=== PATIENT | female | born 1965 | race American Indian/Alaskan Native ===

== ENCOUNTER 2016-12-31 14:47 | Emergency (ER) | payer MEDICARE ==
[2016-12-31 15:02] VITALS: BP 158/102
--- NOTE | 2016-12-31 17:04 | XRay Report ---
FINAL REPORT EXAM: XR CHEST ROUTINE 2V HISTORY: cough TECHNIQUE: Two view chest PA and lateral PRIORS: None. FINDINGS: Cardiac and mediastinal contours are unremarkable. No focal pulmonary infiltrate is identified. No pleural fluid collection seen. Pulmonary vasculature is unremarkable. IMPRESSION: Negative two-view chest
[2016-12-31] MEDS ORDERED: LIDOCAINE VISCOUS 2% PO ONE (18:48)
[2016-12-31] MEDS ORDERED: TESSALON PERLES PO ONE (18:48)
--- NOTE | 2016-12-31 18:50 | Emergency Department Report ---
- General Chief Complaint: Upper Respiratory Infection Stated Complaint: SORE THROAT,COUGHING, EAR PAIN Time Seen by Provider: 12/31/16 18:14 Source: patient Mode of arrival: Ambulatory Limitations: No Limitations - History of Present Illness Initial Comments: This is a 51-year-old female nontoxic, well nourished in appearance, no acute signs of distress presents to the ED with c/o of sore throat, frontal sinus pain , productive cough, and bilateral earache x4 days. Patient stated she was in contact with grandchild that was diagnosed with strep throat. Patient denies any nausea, vomiting, chest pain, shortness of breath, difficulty breathing, stiff neck, headache, blurry vision, fever, chills, numbness or tingling. Patient states allergies to codeine with past medical history of diabetes and hypertension. Patient denies recent travels. Denies hemoptysis, calf pain, or tenderness. MD Complaint: cough, sore throat, rhinorrhea, nasal congestion, sinus pain, other (bilateral earache) -: days(s) (4) Severity: mild Severity scale (0 -10): 8 Quality: aching Consistency: constant Improves With: nothing Worsens With: nothing Associated Symptoms: denies other symptoms, rhinorrhea, nasal congestion, sore throat, cough. denies: fever, chills, myalgias, diaphoresis, headache, stiff neck, chest pain, shortness of breath, abdominal pain, nausea, vomiting, diarrhea, dysuria, rash, confusion, right sweats, weight loss, epistaxis, hoarseness, ear pain Treatments Prior to Arrival: none - Related Data Home Medications Medication Instructions Recorded Confirmed Last Taken Lisinopril/Hydrochlorothiazide 1 tab PO QDAY 11/09/12 11/09/12 11/08/12 21:00 [Zestoretic 20-12.5 mg] metFORMIN [Glucophage] 1,000 mg PO BID 11/09/12 11/09/12 11/08/12 20:00 Previous Rx's Medication Instructions Recorded Last Taken Type Hydrocodone Bit/Acetaminophen 1 each PO Q8H PRN #20 tablet 11/09/12 Unknown Rx [Lortab 7.5-500 mg] Ibuprofen [Motrin] 600 mg PO Q8H PRN #60 tablet 11/09/12 Unknown Rx Penicillin Vk [Veetids TAB] 500 mg PO QID #40 tablet 11/09/12 Unknown Rx Promethazine [Phenergan] 25 mg PO Q6H PRN #12 tablet 02/23/13 Unknown Rx traMADol [Ultram 50 MG tab] 50 mg PO Q6HR PRN #12 tablet 02/23/13 Unknown Rx HYDROcodone/APAP 5-325 [[place] 1 each PO Q6HR PRN #20 tablet 06/07/14 Unknown Rx 5/325] HYDROcodone/APAP 5-325 [[place] 1 each PO Q6HR PRN #14 tablet 11/04/14 Unknown Rx 5/325] Penicillin Vk [Veetids TAB] 500 mg PO QID #40 tablet 11/04/14 Unknown Rx Cyclobenzaprine [Flexeril] 10 mg PO BID PRN #10 tablet 08/04/15 Unknown Rx methylPREDNISolone [Medrol] 4 mg PO DAILY #1 tab.ds.pk 08/04/15 Unknown Rx traMADol [Ultram] 50 mg PO Q6HR PRN #12 tablet 08/04/15 Unknown Rx Amoxicillin/K Clav Tab [Augmentin 1 tab PO Q12HR #20 tab 12/31/16 Unknown Rx 875 mg] Benzonatate [Tessalon Perle] 100 mg PO Q8H #20 capsule 12/31/16 Unknown Rx Nystas/Diphen/Xyl Visc/Mylanta 15 ml MM Q8H 10 Days udc 12/31/16 Unknown Rx [Magic Mouthwash] Allergies Allergy/AdvReac Type Severity Reaction Status Date / Time codeine Allergy Shortness Verified 12/31/16 14:59 of Breath ED Review of Systems ROS: Stated complaint: SORE THROAT,COUGHING, EAR PAIN Other details as noted in HPI Constitutional: denies: chills, fever Eyes: denies: eye pain, eye discharge, vision change ENT: denies: ear pain, throat pain Respiratory: cough. denies: shortness of breath, wheezing Cardiovascular: denies: chest pain, palpitations Endocrine: no symptoms reported Gastrointestinal: denies: abdominal pain, nausea, diarrhea Genitourinary: denies: urgency, dysuria, discharge Musculoskeletal: denies: back pain, joint swelling, arthralgia Skin: denies: rash, lesions Neurological: denies: headache, weakness, paresthesias Psychiatric: denies: anxiety, depression Hematological/Lymphatic: denies: easy bleeding, easy bruising ED Past Medical Hx - Past Medical History Hx Hypertension: Yes Hx Diabetes: Yes (type 2) - Surgical History Additional Surgical History: hysterectomy - Social History Smoking Status: Current Every Day Smoker Substance Use Type: None - Medications Home Medications: Home Medications Medication Instructions Recorded Confirmed Last Taken Type Hydrocodone Bit/Acetaminophen 1 each PO Q8H PRN #20 tablet 11/09/12 Unknown Rx [Lortab 7.5-500 mg] Ibuprofen [Motrin] 600 mg PO Q8H PRN #60 tablet 11/09/12 Unknown Rx Lisinopril/Hydrochlorothiazide 1 tab PO QDAY 11/09/12 11/09/12 11/08/12 21:00 History [Zestoretic 20-12.5 mg] Penicillin Vk [Veetids TAB] 500 mg PO QID #40 tablet 11/09/12 Unknown Rx metFORMIN [Glucophage] 1,000 mg PO BID 11/09/12 11/09/12 11/08/12 20:00 History Promethazine [Phenergan] 25 mg PO Q6H PRN #12 tablet 02/23/13 Unknown Rx traMADol [Ultram 50 MG tab] 50 mg PO Q6HR PRN #12 tablet 02/23/13 Unknown Rx HYDROcodone/APAP 5-325 [[place] 1 each PO Q6HR PRN #20 tablet 06/07/14 Unknown Rx 5/325] HYDROcodone/APAP 5-325 [[place] 1 each PO Q6HR PRN #14 tablet 11/04/14 Unknown Rx 5/325] Penicillin Vk [Veetids TAB] 500 mg PO QID #40 tablet 11/04/14 Unknown Rx Cyclobenzaprine [Flexeril] 10 mg PO BID PRN #10 tablet 08/04/15 Unknown Rx methylPREDNISolone [Medrol] 4 mg PO DAILY #1 tab.ds.pk 08/04/15 Unknown Rx traMADol [Ultram] 50 mg PO Q6HR PRN #12 tablet 08/04/15 Unknown Rx Amoxicillin/K Clav Tab [Augmentin 1 tab PO Q12HR #20 tab 12/31/16 Unknown Rx 875 mg] Benzonatate [Tessalon Perle] 100 mg PO Q8H #20 capsule 12/31/16 Unknown Rx Nystas/Diphen/Xyl Visc/Mylanta 15 ml MM Q8H 10 Days [facility] [place]16 Unknown Rx [Magic Mouthwash] ED Physical Exam - General Limitations: No Limitations General appearance: alert, in no apparent distress - Head Head exam: Present: atraumatic, normocephalic, normal inspection - Eye Eye exam: Present: normal appearance, PERRL, EOMI. Absent: scleral icterus, conjunctival injection, nystagmus, periorbital swelling, periorbital tenderness Pupils: Present: normal accommodation - ENT ENT exam: Present: mucous membranes moist, TM's normal bilaterally, normal external ear exam - Expanded ENT Exam Expanded Ear exam: Present: normal external inspection TM/Canal exam: Erythema: Right TM, Bulging: Right TM Mouth exam: Present: normal external inspection, tongue normal. Absent: drooling, trismus, muffled voice, tongue elevation, laceration Teeth exam: Present: normal inspection Throat exam: Positive: tonsillar erythema, tonsillomegaly (2+), tonsillar exudate, other (Uvula midline. No abscess or swelling noted. ). Negative: R peritonsillar mass, L peritonsillar mass - Neck Neck exam: Present: normal inspection, full ROM. Absent: tenderness, meningismus, lymphadenopathy, thyromegaly - Respiratory Respiratory exam: Present: normal lung sounds bilaterally. Absent: respiratory distress, wheezes, rales, rhonchi, stridor, chest wall tenderness, accessory muscle use, decreased breath sounds, prolonged expiratory - Cardiovascular Cardiovascular Exam: Present: regular rate, normal rhythm, normal heart sounds. Absent: bradycardia, tachycardia, irregular rhythm, systolic murmur, diastolic murmur, rubs, gallop - GI/Abdominal GI/Abdominal exam: Present: soft, normal bowel sounds. Absent: distended, tenderness, guarding, rebound, rigid, diminished bowel sounds - Rectal Rectal exam: Present: deferred - Extremities Exam Extremities exam: Present: normal inspection, full ROM, normal capillary refill. Absent: tenderness, pedal edema, joint swelling, calf tenderness - Back Exam Back exam: Present: normal inspection, full ROM. Absent: tenderness, CVA tenderness (R), CVA tenderness (L), muscle spasm, paraspinal tenderness, vertebral tenderness, rash noted - Neurological Exam Neurological exam: Present: alert, oriented X3, CN II-XII intact, normal gait, reflexes normal - Psychiatric Psychiatric exam: Present: normal affect, normal mood - Skin Skin exam: Present: warm, dry, intact, normal color. Absent: rash - Other Other exam information: Positive frontal sinus tenderness. ED Course Vital Signs 12/31/16 14:59 Temperature 98.4 F Pulse Rate 82 Respiratory 18 Rate Blood Pressure 158/102 O2 Sat by Pulse 99 Oximetry - Reevaluation(s) Reevaluation #1: 12/31/16 19:05 Patient is speaking in full sentences with no signs of distress noted. ED Medical Decision Making - Medical Decision Making This is a 51-year-old female that presents with upper resp infection and sinusitis. Patient was examined by me and patient is stable. Chest xray has obtained and dictated by radiologist with normal exam. Patient was notified of xay results with no further questions noted by the patient. Patient is d/c with augmentin and Tessalon Perles. Patient was instructed to Follow-up with a primary care doctor in 3-5 days or if symptoms worsen and continue return to emergency room as soon as possible. At time time of discharge, the patient does not seem toxic or ill in appearance. No acute signs of distress noted. Patient agrees to discharge treatment plan of care. No further questions noted by the patient. Critical care attestation.: If time is entered above; I have spent that time in minutes in the direct care of this critically ill patient, excluding procedure time. ED Disposition Clinical Impression: Sinusitis Qualifiers: Sinusitis location: frontal Chronicity: acute Recurrence: non-recurrent Qualified Code(s): J01.10 - Acute frontal sinusitis, unspecified Upper respiratory infection Qualifiers: URI type: unspecified URI Qualified Code(s): J06.9 - Acute upper respiratory infection, unspecified Disposition: DC-01 TO HOME OR SELFCARE Is pt being admited?: No Does the pt Need Aspirin: No Condition: Stable Instructions: Sinusitis (ED), Amoxicillin/Clavulanate Potassium (By mouth), Ibuprofen (By mouth) Additional Instructions: Follow-up with a primary care doctor in 3-5 days or if symptoms worsen and continue return to emergency room as soon as possible. Prescriptions: Amoxicillin/K Clav Tab [Augmentin 875 mg] 1 tab PO Q12HR #20 tab Benzonatate [Tessalon Perle] 100 mg PO Q8H #20 capsule Nystas/Diphen/Xyl Visc/Mylanta [Magic Mouthwash] 15 ml MM Q8H 10 Days udc Referrals: PRIMARY CAREMD [Primary Care Provider] - 3-5 Days LISA MANN MD [Staff Physician] - 3-5 Days [facility] [Outside] - 3-5 Days [facility] [Outside] - 3-5 Days Forms: Work/School Release Form(ED)
== END 2016-12-31 19:15 | disposition home or self-care (01) ==
LOC: ED 14:47
DX: J06.9 Acute upper respiratory infection, unspecified (principal); J32.1 Chronic frontal sinusitis; I10 Essential (primary) hypertension; E11.9 Type 2 diabetes mellitus without complications; F17.200 Nicotine dependence, unspecified, uncomplicated; Z88.6 Allergy status to analgesic agent
CPT/HCPCS: 71020; 99283

== ENCOUNTER 2017-07-23 09:00 | Emergency (ER) | payer MEDICARE ==
--- NOTE | 2017-07-23 10:16 | XRay Report ---
ROUTINE CHEST, TWO VIEWS: HISTORY: Productive cough, URI. The trachea, heart, mediastinal contour, lung interiano and bony thorax are unremarkable. IMPRESSION: Unremarkable chest x-ray. No change since 12/31/16.
[2017-07-23] MEDS ORDERED: CATAPRES PO ONE (11:14)
[2017-07-23] MEDS ORDERED: MOTRIN PO ONE (11:14)
[2017-07-23] MEDS ORDERED: TESSALON PERLES PO ONE (11:14)
[2017-07-23] MEDS ORDERED: ZOFRAN ODT ONE (11:32)
[2017-07-23] MEDS ORDERED: ZOFRAN ODT PO ONE (11:35)
--- NOTE | 2017-07-23 11:42 | Emergency Department Report ---
- General Chief Complaint: Upper Respiratory Infection Stated Complaint: DIFFICULTY BREATHING Time Seen by Provider: 07/23/17 11:00 Source: patient Mode of arrival: Ambulatory Limitations: No Limitations - History of Present Illness Initial Comments: This is a 52-year-old female nontoxic, well nourished in appearance, no acute signs of distress presents to the ED with c/o of productive cough, rhinorrhea, nasal congestion x4 days. Patient describes productive cough as yellow mucus production. Patient denies any sick contact. Patient denies any recent travels , long car, recent hospital stays. Patient denies any calf pain or calf tenderness. Patient stated she gets nausea when she coughs but otherwise denies any nausea. Patient is also c/o of vaginal irriation, itching, and discharge. Patient stated she is not concerned about STD but wants to be tested. Patient denies any chest pain, short of breath, fever, chills, vomiting , hemoptysis, numbness, tingling, headache or stiff neck. Patient stated allergies to codeine. PMH includes HTN and type 2 diabetes. Patient stated that she missed her dose of HCTZ 25 mg today. MD Complaint: cough, rhinorrhea, nasal congestion -: days(s) (4) Severity: mild Severity scale (0 -10): 0 Consistency: constant Improves With: nothing Worsens With: nothing Associated Symptoms: rhinorrhea, nasal congestion, cough. denies: fever, chills , myalgias, diaphoresis, headache, sore throat, stiff neck, chest pain, shortness of breath, abdominal pain, nausea, vomiting, diarrhea, dysuria, rash, confusion, right sweats, weight loss, epistaxis, hoarseness, ear pain Treatments Prior to Arrival: none - Related Data Home Medications Medication Instructions Recorded Confirmed Last Taken Lisinopril/Hydrochlorothiazide 1 tab PO QDAY 11/09/12 11/09/12 11/08/12 21:00 [Zestoretic 20-12.5 mg] metFORMIN [Glucophage] 1,000 mg PO BID 11/09/12 11/09/12 11/08/12 20:00 Previous Rx's Medication Instructions Recorded Last Taken Type Hydrocodone Bit/Acetaminophen 1 each PO Q8H PRN #20 tablet 11/09/12 Unknown Rx [Lortab 7.5-500 mg] Ibuprofen [Motrin] 600 mg PO Q8H PRN #60 tablet 11/09/12 Unknown Rx Penicillin Vk [Veetids TAB] 500 mg PO QID #40 tablet 11/09/12 Unknown Rx Promethazine [Phenergan] 25 mg PO Q6H PRN #12 tablet 02/23/13 Unknown Rx traMADol [Ultram 50 MG tab] 50 mg PO Q6HR PRN #12 tablet 02/23/13 Unknown Rx HYDROcodone/APAP 5-325 [[place] 1 each PO Q6HR PRN #20 tablet 06/07/14 Unknown Rx 5/325] HYDROcodone/APAP 5-325 [[place] 1 each PO Q6HR PRN #14 tablet 11/04/14 Unknown Rx 5/325] Penicillin Vk [Veetids TAB] 500 mg PO QID #40 tablet 11/04/14 Unknown Rx Cyclobenzaprine [Flexeril] 10 mg PO BID PRN #10 tablet 08/04/15 Unknown Rx methylPREDNISolone [Medrol] 4 mg PO DAILY #1 tab.ds.pk 08/04/15 Unknown Rx traMADol [Ultram] 50 mg PO Q6HR PRN #12 tablet 08/04/15 Unknown Rx Amoxicillin/K Clav Tab [Augmentin 1 tab PO Q12HR #20 tab 12/31/16 Unknown Rx 875 mg] Benzonatate [Tessalon Perle] 100 mg PO Q8H #20 capsule 12/31/16 Unknown Rx Nystas/Diphen/Xyl Visc/Mylanta 15 ml MM Q8H 10 Days udc 12/31/16 Unknown Rx [Magic Mouthwash] Azithromycin [Zithromax Z-JOSE A] 250 mg PO DAILY #6 tablet 07/23/17 Unknown Rx Benzonatate [Tessalon Perle] 100 mg PO Q8H PRN #20 capsule 07/23/17 Unknown Rx Fluconazole [Diflucan TAB] 150 mg PO ONCE #1 tablet 07/23/17 Unknown Rx Ibuprofen [Motrin] 600 mg PO Q8H PRN #30 tablet 07/23/17 Unknown Rx Ondansetron [Zofran Odt] 4 mg PO Q8HR PRN #20 tab.rapdis 07/23/17 Unknown Rx Allergies Allergy/AdvReac Type Severity Reaction Status Date / Time codeine Allergy Shortness Verified 12/31/16 14:59 of Breath ED Review of Systems ROS: Stated complaint: DIFFICULTY BREATHING Other details as noted in HPI Constitutional: denies: chills, fever Eyes: denies: eye pain, eye discharge, vision change ENT: denies: ear pain, throat pain Respiratory: cough. denies: shortness of breath, wheezing Cardiovascular: denies: chest pain, palpitations Endocrine: no symptoms reported Gastrointestinal: denies: abdominal pain, nausea, diarrhea Genitourinary: discharge. denies: urgency, dysuria Musculoskeletal: denies: back pain, joint swelling, arthralgia Skin: denies: rash, lesions Neurological: denies: headache, weakness, paresthesias Psychiatric: denies: anxiety, depression Hematological/Lymphatic: denies: easy bleeding, easy bruising ED Past Medical Hx - Past Medical History Hx Hypertension: Yes Hx Diabetes: Yes (type 2) - Surgical History Additional Surgical History: hysterectomy - Social History Smoking Status: Current Some Day Smoker Substance Use Type: None - Medications Home Medications: Home Medications Medication Instructions Recorded Confirmed Last Taken Type Hydrocodone Bit/Acetaminophen 1 each PO Q8H PRN #20 tablet 11/09/12 Unknown Rx [Lortab 7.5-500 mg] Ibuprofen [Motrin] 600 mg PO Q8H PRN #60 tablet 11/09/12 Unknown Rx Lisinopril/Hydrochlorothiazide 1 tab PO QDAY 11/09/12 11/09/12 11/08/12 21:00 History [Zestoretic 20-12.5 mg] Penicillin Vk [Veetids TAB] 500 mg PO QID #40 tablet 11/09/12 Unknown Rx metFORMIN [Glucophage] 1,000 mg PO BID 11/09/12 11/09/12 11/08/12 20:00 History Promethazine [Phenergan] 25 mg PO Q6H PRN #12 tablet 02/23/13 Unknown Rx traMADol [Ultram 50 MG tab] 50 mg PO Q6HR PRN #12 tablet 02/23/13 Unknown Rx HYDROcodone/APAP 5-325 [[place] 1 each PO Q6HR PRN #20 tablet 06/07/14 Unknown Rx 5/325] HYDROcodone/APAP 5-325 [[place] 1 each PO Q6HR PRN #14 tablet 11/04/14 Unknown Rx 5/325] Penicillin Vk [Veetids TAB] 500 mg PO QID #40 tablet 11/04/14 Unknown Rx Cyclobenzaprine [Flexeril] 10 mg PO BID PRN #10 tablet 08/04/15 Unknown Rx methylPREDNISolone [Medrol] 4 mg PO DAILY #1 tab.ds.pk 08/04/15 Unknown Rx traMADol [Ultram] 50 mg PO Q6HR PRN #12 tablet 08/04/15 Unknown Rx Amoxicillin/K Clav Tab [Augmentin 1 tab PO Q12HR #20 tab 12/31/16 Unknown Rx 875 mg] Benzonatate [Tessalon Perle] 100 mg PO Q8H #20 capsule 12/31/16 Unknown Rx Nystas/Diphen/Xyl Visc/Mylanta 15 ml MM Q8H 10 Days udc 12/31/16 Unknown Rx [Magic Mouthwash] Azithromycin [Zithromax Z-JOSE A] 250 mg PO DAILY #6 tablet 07/23/17 Unknown Rx Benzonatate [Tessalon Perle] 100 mg PO Q8H PRN #20 capsule 07/23/17 Unknown Rx Fluconazole [Diflucan TAB] 150 mg PO ONCE #1 tablet 07/23/17 Unknown Rx Ibuprofen [Motrin] 600 mg PO Q8H PRN #30 tablet 07/23/17 Unknown Rx Ondansetron [Zofran Odt] 4 mg PO Q8HR PRN #20 tab.rapdis 07/23/17 Unknown Rx ED Physical Exam - General Limitations: No Limitations General appearance: alert, in no apparent distress - Head Head exam: Present: atraumatic, normocephalic - Eye Eye exam: Present: normal appearance Pupils: Present: normal accommodation - ENT ENT exam: Present: normal exam, normal orophraynx, mucous membranes moist, TM's normal bilaterally, normal external ear exam - Neck Neck exam: Present: normal inspection, full ROM. Absent: tenderness, meningismus, lymphadenopathy - Respiratory Respiratory exam: Present: normal lung sounds bilaterally. Absent: respiratory distress, wheezes, rales, rhonchi, stridor, chest wall tenderness, accessory muscle use, decreased breath sounds, prolonged expiratory - Cardiovascular Cardiovascular Exam: Present: regular rate, normal rhythm, normal heart sounds. Absent: bradycardia, tachycardia, irregular rhythm, systolic murmur, diastolic murmur, rubs, gallop - GI/Abdominal GI/Abdominal exam: Present: soft, normal bowel sounds. Absent: distended, tenderness, guarding, rebound, rigid, diminished bowel sounds - Rectal Rectal exam: Present: deferred - External exam: Present: normal external exam, other (labeler present during exam). Absent: erythema, swelling, lesions, lacerations, ecchymosis, bleeding Speculum exam: Present: normal speculum exam, cervical discharge, other ( labeler present during exam). Absent: erythema, vaginal discharge, vaginal bleeding, foreign body, tissue, laceration Bi-manual exam: Present: normal bi-manual exam, other (labeler present during exam). Absent: cervical motion tendernes, adnexal tenderness, adnexal mass, uterine enlargement, uterine tenderness - Extremities Exam Extremities exam: Present: normal inspection, full ROM, normal capillary refill. Absent: tenderness - Back Exam Back exam: Present: normal inspection, full ROM. Absent: tenderness, CVA tenderness (R), CVA tenderness (L), muscle spasm, paraspinal tenderness, vertebral tenderness, rash noted - Neurological Exam Neurological exam: Present: alert, oriented X3, CN II-XII intact, normal gait - Psychiatric Psychiatric exam: Present: normal affect, normal mood - Skin Skin exam: Present: warm, dry, intact, normal color. Absent: rash ED Course Vital Signs 07/23/17 09:49 Temperature 98.8 F Pulse Rate 78 Respiratory 18 Rate Blood Pressure 190/108 Blood Pressure 190/108 [Right] O2 Sat by Pulse 100 Oximetry - Reevaluation(s) Reevaluation #1: 07/23/17 11:43 Patient is speaking in full sentences with no signs of distress noted. ED Medical Decision Making - Medical Decision Making This is a 52-year-old female that presents with bronchitis and yeast infection. Patient is stable and was examined by me. Chest x-ray has been obtained and dictated by radiologist with normal exam. Patient is notified of x-ray results with no questions noted. Due to patient having symptoms of bronchitis and worsening I will treat patient empirically with zpak. Wet prep obtained. GC pending. UA obtained. Patient was instructed to increase hydration, rest and take Motrin for fever episodes. Patient received tesslone perrls in the ED. Vitals stable. Patient is nonfebrile and normal heart rate. Patient was instructed Follow-up with a primary care doctor in 3-5 days or if symptoms worsen and continue return to emergency room as soon as possible. At time time of discharge, the patient does not seem toxic or ill in appearance. No acute signs of distress noted. Patient agrees to discharge treatment plan of care. No further questions noted by the patient. Patient also received Catapres in the ED. The b/p has decreased prior to discharge. Critical care attestation.: If time is entered above; I have spent that time in minutes in the direct care of this critically ill patient, excluding procedure time. ED Disposition Clinical Impression: Yeast infection of the vagina Acute bronchitis Qualifiers: Bronchitis organism: other organism Qualified Code(s): J20.8 - Acute bronchitis due to other specified organisms Hypertension Qualifiers: Hypertension type: unspecified Qualified Code(s): I10 - Essential (primary) hypertension Disposition: TO HOME OR SELFCARE Is pt being admited?: No Does the pt Need Aspirin: No Condition: Stable Instructions: Azithromycin (By mouth), Acute Bronchitis (ED), Hypertension (ED) , Vulvovaginal Candidiasis (ED) Additional Instructions: Follow-up with a primary care doctor in 3-5 days or if symptoms worsen and continue return to emergency room as soon as possible. Return in 3-5 days for gonorrhea and chlamydia results. Keep your daily dairy of your blood pressure and present it to your primary care doctor. Prescriptions: Azithromycin [Zithromax Z-JOSE A] 250 mg PO DAILY #6 tablet Benzonatate [Tessalon Perle] 100 mg PO Q8H PRN #20 capsule PRN Reason: Cough Fluconazole [Diflucan TAB] 150 mg PO ONCE #1 tablet Ibuprofen [Motrin] 600 mg PO Q8H PRN #30 tablet PRN Reason: Pain Ondansetron [Zofran Odt] 4 mg PO Q8HR PRN #20 tab.rapdis PRN Reason: Nausea Referrals: PRIMARY CARE, [Primary Care Provider] - 3-5 Days LISA MANN MD [Staff Physician] - 3-5 Days [facility] [Outside] - 3-5 Days [facility] [Outside] - 3-5 Days Forms: Work/School Release Form(ED)
[2017-07-23 12:17] LABS: Bacteria,Urine 1+ /HPF (Negative); Bilirubin,Urine NEG (Negative); Blood,Urine NEG (Negative); Color,Urine Yellow (Yellow); Mucus,Urine FEW /HPF; Protein,Urine <15 mg/dL mg/dL (Negative); Urobilinogen,Urine < 2.0 mg/dL (<2.0)
[2017-07-23 13:28] VITALS: BP 154/91
== END 2017-07-23 13:30 | disposition home or self-care (01) ==
LOC: ED 09:00
DX: J20.8 Acute bronchitis due to other specified organisms (principal); I10 Essential (primary) hypertension; B37.9 Candidiasis, unspecified; E11.9 Type 2 diabetes mellitus without complications; Z90.710 Acquired absence of both cervix and uterus; Z72.0 Tobacco use; Z88.5 Allergy status to narcotic agent
CPT/HCPCS: 71046; 81001; 87210; 87591; Q0162

== ENCOUNTER 2019-01-29 13:11 | Emergency (ER) | payer MEDICARE ==
[2019-01-29 13:35] VITALS: BP 144/89
--- NOTE | 2019-01-29 13:40 | Emergency Department Report ---
ED ENT HPI - General Chief complaint: Sore Throat Stated complaint: EARACHE Time Seen by Provider: 01/29/19 13:32 Source: patient Mode of arrival: Ambulatory Limitations: No Limitations - History of Present Illness Initial comments: This is a 53-year-old female nontoxic well in appearance with no signs of distress presents to the ED with complaint of left earache. Patient denies any hearing loss. Denies any mastoid tenderness. Denies any fever, chills, headache, nausea, vomiting, chest pain or SOB. Denies any other complaints. Denies any allergies. MD complaint: ear pain -: week(s) (2) Location: L ear Severity: mild Severity scale (0 -10): 8 Quality: aching Consistency: constant Improves with: none Worsens with: none Associated Symptoms: discharge from ear. denies: fever, cough, gum swelling, toothache, pain with swallowing, sore throat, tinnitus, hearing loss, rhinorrhea - Related Data Home Medications Medication Instructions Recorded Confirmed Last Taken Lisinopril/Hydrochlorothiazide 1 tab PO QDAY 11/09/12 11/09/12 11/08/12 21:00 [Zestoretic 20-12.5 mg] metFORMIN [Glucophage] 1,000 mg PO BID 11/09/12 11/09/12 11/08/12 20:00 Previous Rx's Medication Instructions Recorded Last Taken Type Hydrocodone Bit/Acetaminophen 1 each PO Q8H PRN #20 tablet 11/09/12 Unknown Rx [Lortab 7.5-500 mg] Ibuprofen [Motrin] 600 mg PO Q8H PRN #60 tablet 11/09/12 Unknown Rx Penicillin Vk [Veetids TAB] 500 mg PO QID #40 tablet 11/09/12 Unknown Rx Promethazine [Phenergan] 25 mg PO Q6H PRN #12 tablet 02/23/13 Unknown Rx traMADoL [Ultram 50 MG tab] 50 mg PO Q6HR PRN #12 tablet 02/23/13 Unknown Rx HYDROcodone/APAP 5-325 [[place] 1 each PO Q6HR PRN #20 tablet 06/07/14 Unknown Rx 5/325] HYDROcodone/APAP 5-325 [[place] 1 each PO Q6HR PRN #14 tablet 11/04/14 Unknown Rx 5/325] Penicillin Vk [Veetids TAB] 500 mg PO QID #40 tablet 11/04/14 Unknown Rx Cyclobenzaprine [Flexeril] 10 mg PO BID PRN #10 tablet 08/04/15 Unknown Rx methylPREDNISolone [Medrol] 4 mg PO DAILY #1 tab.ds.pk 08/04/15 Unknown Rx traMADoL [Ultram] 50 mg PO Q6HR PRN #12 tablet 08/04/15 Unknown Rx Amoxicillin/K Clav Tab [Augmentin 1 tab PO Q12HR #20 tab 12/31/16 Unknown Rx 875 mg] Benzonatate [Tessalon Perle] 100 mg PO Q8H #20 capsule 12/31/16 Unknown Rx Nystas/Diphen/Xyl Visc/Mylanta 15 ml MM Q8H 10 Days udc 12/31/16 Unknown Rx [Magic Mouthwash] Azithromycin [Zithromax Z-JOSE A] 250 mg PO DAILY #6 tablet 07/23/17 Unknown Rx Benzonatate [Tessalon Perle] 100 mg PO Q8H PRN #20 capsule 07/23/17 Unknown Rx Fluconazole [Diflucan TAB] 150 mg PO ONCE #1 tablet 07/23/17 Unknown Rx Ibuprofen [Motrin] 600 mg PO Q8H PRN #30 tablet 07/23/17 Unknown Rx Ondansetron [Zofran Odt] 4 mg PO Q8HR PRN #20 tab.rapdis 07/23/17 Unknown Rx Amoxicillin [Amoxicillin TAB] 875 mg PO BID #20 tablet 01/29/19 Unknown Rx Ciprofloxacin HCl/Dexameth 2 drop BID #1 bottle 01/29/19 Unknown Rx [Ciprodex Otic Suspension] Naproxen 500 mg PO Q12H PRN #20 tablet 01/29/19 Unknown Rx Allergies Allergy/AdvReac Type Severity Reaction Status Date / Time codeine Allergy Shortness Verified 12/31/16 14:59 of Breath ED Dental HPI - General Chief complaint: Sore Throat Stated complaint: EARACHE Time Seen by Provider: 01/29/19 13:32 Source: patient Mode of arrival: Ambulatory Limitations: No Limitations - Related Data Home Medications Medication Instructions Recorded Confirmed Last Taken Lisinopril/Hydrochlorothiazide 1 tab PO QDAY 11/09/12 11/09/12 11/08/12 21:00 [Zestoretic 20-12.5 mg] metFORMIN [Glucophage] 1,000 mg PO BID 11/09/12 11/09/12 11/08/12 20:00 Previous Rx's Medication Instructions Recorded Last Taken Type Hydrocodone Bit/Acetaminophen 1 each PO Q8H PRN #20 tablet 11/09/12 Unknown Rx [Lortab 7.5-500 mg] Ibuprofen [Motrin] 600 mg PO Q8H PRN #60 tablet 11/09/12 Unknown Rx Penicillin Vk [Veetids TAB] 500 mg PO QID #40 tablet 11/09/12 Unknown Rx Promethazine [Phenergan] 25 mg PO Q6H PRN #12 tablet 02/23/13 Unknown Rx traMADoL [Ultram 50 MG tab] 50 mg PO Q6HR PRN #12 tablet 02/23/13 Unknown Rx HYDROcodone/APAP 5-325 [[place] 1 each PO Q6HR PRN #20 tablet 06/07/14 Unknown Rx 5/325] HYDROcodone/APAP 5-325 [[place] 1 each PO Q6HR PRN #14 tablet 11/04/14 Unknown Rx 5/325] Penicillin Vk [Veetids TAB] 500 mg PO QID #40 tablet 11/04/14 Unknown Rx Cyclobenzaprine [Flexeril] 10 mg PO BID PRN #10 tablet 08/04/15 Unknown Rx methylPREDNISolone [Medrol] 4 mg PO DAILY #1 tab.ds.pk 08/04/15 Unknown Rx traMADoL [Ultram] 50 mg PO Q6HR PRN #12 tablet 08/04/15 Unknown Rx Amoxicillin/K Clav Tab [Augmentin 1 tab PO Q12HR #20 tab 12/31/16 Unknown Rx 875 mg] Benzonatate [Tessalon Perle] 100 mg PO Q8H #20 capsule 12/31/16 Unknown Rx Nystas/Diphen/Xyl Visc/Mylanta 15 ml MM Q8H 10 Days udc 12/31/16 Unknown Rx [Magic Mouthwash] Azithromycin [Zithromax Z-JOSE A] 250 mg PO DAILY #6 tablet 07/23/17 Unknown Rx Benzonatate [Tessalon Perle] 100 mg PO Q8H PRN #20 capsule 07/23/17 Unknown Rx Fluconazole [Diflucan TAB] 150 mg PO ONCE #1 tablet 07/23/17 Unknown Rx Ibuprofen [Motrin] 600 mg PO Q8H PRN #30 tablet 07/23/17 Unknown Rx Ondansetron [Zofran Odt] 4 mg PO Q8HR PRN #20 tab.rapdis 07/23/17 Unknown Rx Amoxicillin [Amoxicillin TAB] 875 mg PO BID #20 tablet 01/29/19 Unknown Rx Ciprofloxacin HCl/Dexameth 2 drop BID #1 bottle 01/29/19 Unknown Rx [Ciprodex Otic Suspension] Naproxen 500 mg PO Q12H PRN #20 tablet 01/29/19 Unknown Rx Allergies Allergy/AdvReac Type Severity Reaction Status Date / Time codeine Allergy Shortness Verified 12/31/16 14:59 of Breath ED Review of Systems ROS: Stated complaint: EARACHE Other details as noted in HPI Constitutional: denies: chills, fever Eyes: denies: eye pain, eye discharge, vision change ENT: ear pain. denies: throat pain Respiratory: denies: cough, shortness of breath, wheezing Cardiovascular: denies: chest pain, palpitations Endocrine: no symptoms reported Gastrointestinal: denies: abdominal pain, nausea, diarrhea Genitourinary: denies: urgency, dysuria, discharge Musculoskeletal: denies: back pain, joint swelling, arthralgia Skin: denies: rash, lesions Neurological: denies: headache, weakness, paresthesias Psychiatric: denies: anxiety, depression Hematological/Lymphatic: denies: easy bleeding, easy bruising ED Past Medical Hx - Past Medical History Previous Medical History?: Yes Hx Hypertension: Yes Hx Diabetes: Yes (type 2) - Surgical History Past Surgical History?: Yes Additional Surgical History: hysterectomy - Social History Smoking Status: Never Smoker Substance Use Type: None - Medications Home Medications: Home Medications Medication Instructions Recorded Confirmed Last Taken Type Hydrocodone Bit/Acetaminophen 1 each PO Q8H PRN #20 tablet 11/09/12 Unknown Rx [Lortab 7.5-500 mg] Ibuprofen [Motrin] 600 mg PO Q8H PRN #60 tablet 11/09/12 Unknown Rx Lisinopril/Hydrochlorothiazide 1 tab PO QDAY 11/09/12 11/09/12 11/08/12 21:00 History [Zestoretic 20-12.5 mg] Penicillin Vk [Veetids TAB] 500 mg PO QID #40 tablet 11/09/12 Unknown Rx metFORMIN [Glucophage] 1,000 mg PO BID 11/09/12 11/09/12 11/08/12 20:00 History Promethazine [Phenergan] 25 mg PO Q6H PRN #12 tablet 02/23/13 Unknown Rx traMADoL [Ultram 50 MG tab] 50 mg PO Q6HR PRN #12 tablet 02/23/13 Unknown Rx HYDROcodone/APAP 5-325 [[place] 1 each PO Q6HR PRN #20 tablet 06/07/14 Unknown Rx 5/325] HYDROcodone/APAP 5-325 [[place] 1 each PO Q6HR PRN #14 tablet 11/04/14 Unknown Rx 5/325] Penicillin Vk [Veetids TAB] 500 mg PO QID #40 tablet 11/04/14 Unknown Rx Cyclobenzaprine [Flexeril] 10 mg PO BID PRN #10 tablet 08/04/15 Unknown Rx methylPREDNISolone [Medrol] 4 mg PO DAILY #1 tab.ds.pk 08/04/15 Unknown Rx traMADoL [Ultram] 50 mg PO Q6HR PRN #12 tablet 08/04/15 Unknown Rx Amoxicillin/K Clav Tab [Augmentin 1 tab PO Q12HR #20 tab 12/31/16 Unknown Rx 875 mg] Benzonatate [Tessalon Perle] 100 mg PO Q8H #20 capsule 12/31/16 Unknown Rx Nystas/Diphen/Xyl Visc/Mylanta 15 ml MM Q8H 10 Days udc 12/31/16 Unknown Rx [Magic Mouthwash] Azithromycin [Zithromax Z-JOSE A] 250 mg PO DAILY #6 tablet 07/23/17 Unknown Rx Benzonatate [Tessalon Perle] 100 mg PO Q8H PRN #20 capsule 07/23/17 Unknown Rx Fluconazole [Diflucan TAB] 150 mg PO ONCE #1 tablet 07/23/17 Unknown Rx Ibuprofen [Motrin] 600 mg PO Q8H PRN #30 tablet 07/23/17 Unknown Rx Ondansetron [Zofran Odt] 4 mg PO Q8HR PRN #20 tab.rapdis 07/23/17 Unknown Rx Amoxicillin [Amoxicillin TAB] 875 mg PO BID #20 tablet 01/29/19 Unknown Rx Ciprofloxacin HCl/Dexameth 2 drop BID #1 bottle 01/29/19 Unknown Rx [Ciprodex Otic Suspension] Naproxen 500 mg PO Q12H PRN #20 tablet 01/29/19 Unknown Rx ED Physical Exam - General Limitations: No Limitations General appearance: alert, in no apparent distress - Head Head exam: Present: atraumatic, normocephalic - Expanded ENT Exam Expanded Ear exam: Present: normal external inspection TM/Canal exam: Erythema: Left TM, Bulging: Left TM Mouth exam: Present: normal external inspection Teeth exam: Present: normal inspection Throat exam: Positive: normal inspection, other (uvula midline). Negative: tonsillar erythema, tonsillomegaly, tonsillar exudate, R peritonsillar mass, L peritonsillar mass - Neck Neck exam: Present: normal inspection, full ROM. Absent: tenderness, meningismus, lymphadenopathy - Extremities Exam Extremities exam: Present: full ROM - Back Exam Back exam: Present: full ROM - Neurological Exam Neurological exam: Present: alert, oriented X3, normal gait - Psychiatric Psychiatric exam: Present: normal affect, normal mood - Skin Skin exam: Present: warm, dry, intact, normal color. Absent: rash - Other Other exam information: left tragus pain with some drainage. No mastoid tenderness. ED Course Vital Signs 01/29/19 13:33 Temperature 98.3 F Pulse Rate 71 Respiratory 18 Rate Blood Pressure 144/89 O2 Sat by Pulse 98 Oximetry - Reevaluation(s) Reevaluation #1: 01/29/19 13:37 Patient is speaking in full sentences with no signs of distress noted. ED Medical Decision Making - Medical Decision Making Patient was instructed to Follow-up with a primary care doctor in 3-5 days or if symptoms worsen and continue return to emergency room as soon as possible. At time of discharge, the patient does not seem toxic or ill in appearance. No acute signs of distress noted. Patient agrees to discharge treatment plan of care. No further questions noted by the patient. Critical care attestation.: If time is entered above; I have spent that time in minutes in the direct care of this critically ill patient, excluding procedure time. ED Disposition Clinical Impression: Left otitis externa Qualifiers: Otitis externa type: unspecified type Chronicity: acute Qualified Code(s): H60. 502 - Unspecified acute noninfective otitis externa, left ear Left otitis media Qualifiers: Otitis media type: unspecified Qualified Code(s): H66.92 - Otitis media, unspecified, left ear Disposition: DC-01 TO HOME OR SELFCARE Is pt being admited?: No Does the pt Need Aspirin: No Condition: Stable Instructions: Otitis Externa (ED), Otitis Media (ED) Additional Instructions: Patient was instructed to Follow-up with a primary care doctor in 3-5 days or if symptoms worsen and continue return to emergency room as soon as possible. Prescriptions: Amoxicillin [Amoxicillin TAB] 875 mg PO BID #20 tablet Ciprofloxacin HCl/Dexameth [Ciprodex Otic Suspension] 2 drop BID #1 bottle Naproxen 500 mg PO Q12H PRN #20 tablet PRN Reason: Pain, Moderate (4-6) Referrals: PRIMARY CAREMD [Referring] - 3-5 Days LOREN RING MD [Staff Physician] - 3-5 Days [facility] [Outside] - 3-5 Days Forms: Work/School Release Form(ED)
== END 2019-01-29 13:40 | disposition home or self-care (01) ==
LOC: ED 13:11
DX: H60.92 Unspecified otitis externa, left ear (principal); H66.92 Otitis media, unspecified, left ear; I10 Essential (primary) hypertension; E11.9 Type 2 diabetes mellitus without complications; Z90.710 Acquired absence of both cervix and uterus; Z79.1 Long term (current) use of non-steroidal anti-inflammatories (NSAID); Z79.2 Long term (current) use of antibiotics; Z79.4 Long term (current) use of insulin; Z79.899 Other long term (current) drug therapy; Z88.4 Allergy status to anesthetic agent
CPT/HCPCS: 99282

== ENCOUNTER 2019-04-02 08:56 | Emergency (ER) | payer MEDICARE ==
[2019-04-02 09:18] VITALS: BP 150/85
--- NOTE | 2019-04-02 09:50 | Emergency Department Report ---
{null, - General Chief Complaint: Upper Respiratory Infection Stated Complaint: COLD SX Time Seen by Provider: 04/02/19 09:28 Source: patient Mode of arrival: Ambulatory Limitations: No Limitations - History of Present Illness Initial Comments: 53-year-old -[place] female patient with a history of hypertension and diabetes presents with complaints of cough, body aches, and chills x2 days. She admits to being a smoker, but denies any history of asthma. She states her cough is productive of clear sputum. She denies any hemoptysis, chest pain, or shortness of breath. She admits to nasal congestion and tactile fever and also complains of left ear pain. MD Complaint: fever, cough, rhinorrhea, nasal congestion -: Sudden - Related Data Home Medications Medication Instructions Recorded Confirmed Last Taken Lisinopril/Hydrochlorothiazide 1 tab PO QDAY 11/09/12 11/09/12 11/08/12 21:00 [Zestoretic 20-12.5 mg] metFORMIN [Glucophage] 1,000 mg PO BID 11/09/12 11/09/12 11/08/12 20:00 Previous Rx's Medication Instructions Recorded Last Taken Type Hydrocodone Bit/Acetaminophen 1 each PO Q8H PRN #20 tablet 11/09/12 Unknown Rx [Lortab 7.5-500 mg] Ibuprofen [Motrin] 600 mg PO Q8H PRN #60 tablet 11/09/12 Unknown Rx Penicillin Vk [Veetids TAB] 500 mg PO QID #40 tablet 11/09/12 Unknown Rx Promethazine [Phenergan] 25 mg PO Q6H PRN #12 tablet 02/23/13 Unknown Rx traMADoL [Ultram 50 MG tab] 50 mg PO Q6HR PRN #12 tablet 02/23/13 Unknown Rx HYDROcodone/APAP 5-325 [[place] 1 each PO Q6HR PRN #20 tablet 06/07/14 Unknown Rx 5/325] HYDROcodone/APAP 5-325 [[place] 1 each PO Q6HR PRN #14 tablet 11/04/14 Unknown Rx 5/325] Penicillin Vk [Veetids TAB] 500 mg PO QID #40 tablet 11/04/14 Unknown Rx Cyclobenzaprine [Flexeril] 10 mg PO BID PRN #10 tablet 08/04/15 Unknown Rx methylPREDNISolone [Medrol] 4 mg PO DAILY #1 tab.ds.pk 08/04/15 Unknown Rx traMADoL [Ultram] 50 mg PO Q6HR PRN #12 tablet 08/04/15 Unknown Rx Amoxicillin/K Clav Tab [Augmentin 1 tab PO Q12HR #20 tab 12/31/16 Unknown Rx 875 mg] Benzonatate [Tessalon Perle] 100 mg PO Q8H #20 capsule 12/31/16 Unknown Rx Nystas/Diphen/Xyl Visc/Mylanta 15 ml MM Q8H 10 Days udc 12/31/16 Unknown Rx [Magic Mouthwash] Azithromycin [Zithromax Z-JOSE A] 250 mg PO DAILY #6 tablet 07/23/17 Unknown Rx Benzonatate [Tessalon Perle] 100 mg PO Q8H PRN #20 capsule 07/23/17 Unknown Rx Fluconazole [Diflucan TAB] 150 mg PO ONCE #1 tablet 07/23/17 Unknown Rx Ibuprofen [Motrin] 600 mg PO Q8H PRN #30 tablet 07/23/17 Unknown Rx Ondansetron [Zofran Odt] 4 mg PO Q8HR PRN #20 tab.rapdis 07/23/17 Unknown Rx Amoxicillin [Amoxicillin TAB] 875 mg PO BID #20 tablet 01/29/19 Unknown Rx Ciprofloxacin HCl/Dexameth 2 drop BID #1 bottle 01/29/19 Unknown Rx [Ciprodex Otic Suspension] Naproxen 500 mg PO Q12H PRN #20 tablet 01/29/19 Unknown Rx Benzonatate 200 mg PO TID PRN #30 capsule 04/02/19 Unknown Rx Ibuprofen [Motrin 600 MG tab] 600 mg PO Q8H PRN #15 tablet 04/02/19 Unknown Rx Allergies Allergy/AdvReac Type Severity Reaction Status Date / Time codeine Allergy Shortness Verified 12/31/16 14:59 of Breath ED Review of Systems ROS: Stated complaint: COLD SX Other details as noted in HPI Constitutional: chills, fever, malaise. denies: diaphoresis ENT: ear pain, throat pain Respiratory: cough. denies: shortness of breath Cardiovascular: denies: chest pain Gastrointestinal: denies: abdominal pain, nausea, vomiting, diarrhea Genitourinary: denies: urgency, frequency Musculoskeletal: denies: back pain, joint swelling, arthralgia Skin: denies: rash, lesions Neurological: denies: headache ED Past Medical Hx - Past Medical History Previous Medical History?: Yes Hx Hypertension: Yes Hx CVA: Yes Hx Diabetes: Yes (type 2) - Surgical History Past Surgical History?: Yes Additional Surgical History: hysterectomy - Social History Smoking Status: Current Some Day Smoker Substance Use Type: None - Medications Home Medications: Home Medications Medication Instructions Recorded Confirmed Last Taken Type Hydrocodone Bit/Acetaminophen 1 each PO Q8H PRN #20 tablet 11/09/12 Unknown Rx [Lortab 7.5-500 mg] Ibuprofen [Motrin] 600 mg PO Q8H PRN #60 tablet 11/09/12 Unknown Rx Lisinopril/Hydrochlorothiazide 1 tab PO QDAY 11/09/12 11/09/12 11/08/12 21:00 History [Zestoretic 20-12.5 mg] Penicillin Vk [Veetids TAB] 500 mg PO QID #40 tablet 11/09/12 Unknown Rx metFORMIN [Glucophage] 1,000 mg PO BID 11/09/12 11/09/12 11/08/12 20:00 History Promethazine [Phenergan] 25 mg PO Q6H PRN #12 tablet 02/23/13 Unknown Rx traMADoL [Ultram 50 MG tab] 50 mg PO Q6HR PRN #12 tablet 02/23/13 Unknown Rx HYDROcodone/APAP 5-325 [[place] 1 each PO Q6HR PRN #20 tablet 06/07/14 Unknown Rx 5/325] HYDROcodone/APAP 5-325 [[place] 1 each PO Q6HR PRN #14 tablet 11/04/14 Unknown Rx 5/325] Penicillin Vk [Veetids TAB] 500 mg PO QID #40 tablet 11/04/14 Unknown Rx Cyclobenzaprine [Flexeril] 10 mg PO BID PRN #10 tablet 08/04/15 Unknown Rx methylPREDNISolone [Medrol] 4 mg PO DAILY #1 tab.ds.pk 08/04/15 Unknown Rx traMADoL [Ultram] 50 mg PO Q6HR PRN #12 tablet 08/04/15 Unknown Rx Amoxicillin/K Clav Tab [Augmentin 1 tab PO Q12HR #20 tab 12/31/16 Unknown Rx 875 mg] Benzonatate [Tessalon Perle] 100 mg PO Q8H #20 capsule 12/31/16 Unknown Rx Nystas/Diphen/Xyl Visc/Mylanta 15 ml MM Q8H 10 Days udc 12/31/16 Unknown Rx [Magic Mouthwash] Azithromycin [Zithromax Z-JOSE A] 250 mg PO DAILY #6 tablet 07/23/17 Unknown Rx Benzonatate [Tessalon Perle] 100 mg PO Q8H PRN #20 capsule 07/23/17 Unknown Rx Fluconazole [Diflucan TAB] 150 mg PO ONCE #1 tablet 07/23/17 Unknown Rx Ibuprofen [Motrin] 600 mg PO Q8H PRN #30 tablet 07/23/17 Unknown Rx Ondansetron [Zofran Odt] 4 mg PO Q8HR PRN #20 tab.rapdis 07/23/17 Unknown Rx Amoxicillin [Amoxicillin TAB] 875 mg PO BID #20 tablet 01/29/19 Unknown Rx Ciprofloxacin HCl/Dexameth 2 drop BID #1 bottle 01/29/19 Unknown Rx [Ciprodex Otic Suspension] Naproxen 500 mg PO Q12H PRN #20 tablet 01/29/19 Unknown Rx Benzonatate 200 mg PO TID PRN #30 capsule 04/02/19 Unknown Rx Ibuprofen [Motrin 600 MG tab] 600 mg PO Q8H PRN #15 tablet 04/02/19 Unknown Rx ED Physical Exam - General Limitations: No Limitations General appearance: alert, in no apparent distress - Head Head exam: Present: atraumatic - Eye Eye exam: Present: normal appearance. Absent: scleral icterus - ENT ENT exam: Present: normal orophraynx, mucous membranes moist, TM's normal bilaterally - Neck Neck exam: Present: normal inspection - Respiratory Respiratory exam: Present: normal lung sounds bilaterally. Absent: respiratory distress, wheezes, rales, rhonchi - Cardiovascular Cardiovascular Exam: Present: regular rate, normal rhythm. Absent: systolic murmur, diastolic murmur, rubs, gallop - Extremities Exam Extremities exam: Present: normal inspection. Absent: calf tenderness (No swelling or edema noted bilaterally) - Back Exam Back exam: Present: normal inspection - Neurological Exam Neurological exam: Present: alert, oriented X3 - Psychiatric Psychiatric exam: Present: normal affect, normal mood - Skin Skin exam: Present: warm, dry, intact, normal color. Absent: rash, cyanosis, diaphoretic, erythema, petechiae ED Course Vital Signs 04/02/19 09:16 Temperature 98.5 F Pulse Rate 64 Respiratory 20 Rate Blood Pressure 150/85 O2 Sat by Pulse 99 Oximetry ED Medical Decision Making - Radiology Data Radiology results: report reviewed CHEST 2 VIEWS INDICATION / CLINICAL INFORMATION: Cough and fever today. COMPARISON: None available. FINDINGS: SUPPORT DEVICES: None. HEART / MEDIASTINUM: The heart size and pulmonary vasculature are normal. LUNGS / PLEURA: No significant pulmonary or pleural abnormality. No pneumothorax. ADDITIONAL FINDINGS: No significant additional findings. IMPRESSION: No acute findings. There is no evidence of pneumonia. - Medical Decision Making Patient presents with flulike symptoms x2 days. On exam her lungs are clear bilaterally to auscultation and she overall appears well. Her vitals are normal. Chest x-ray is negative for acute findings. Rapid flu was negative. Symptoms appear to be consistent with a viral upper respiratory infection. Will treat conservatively. Recommend follow-up with primary care provider in the next 3 to 5 days. Discussed strict return precautions in detail with patient who verbalizes understanding. Critical care attestation.: If time is entered above; I have spent that time in minutes in the direct care of this critically ill patient, excluding procedure time. ED Disposition Clinical Impression: Viral URI with cough Disposition: DC-01 TO HOME OR SELFCARE Is pt being admited?: No Condition: Stable Instructions: Upper Respiratory Infection (ED) Prescriptions: Benzonatate 200 mg PO TID PRN #30 capsule PRN Reason: Cough Ibuprofen [Motrin 600 MG tab] 600 mg PO Q8H PRN #15 tablet PRN Reason: Pain/fever Referrals: ALE SOUSA MD [Primary Care Provider] - 3-5 Days }
--- NOTE | 2019-04-02 10:16 | XRay Report ---
{null, CHEST 2 VIEWS INDICATION / CLINICAL INFORMATION: Cough and fever today. COMPARISON: None available. FINDINGS: SUPPORT DEVICES: None. HEART / MEDIASTINUM: The heart size and pulmonary vasculature are normal. LUNGS / PLEURA: No significant pulmonary or pleural abnormality. No pneumothorax. ADDITIONAL FINDINGS: No significant additional findings. IMPRESSION: No acute findings. There is no evidence of pneumonia. Signer Name: Bradford Carrera MD Signed: 04/02/2019 10:12 AM Workstation Name: [id number] }
== END 2019-04-02 12:54 | disposition home or self-care (01) ==
LOC: ED 08:56
DX: J06.9 Acute upper respiratory infection, unspecified (principal); I10 Essential (primary) hypertension; E11.9 Type 2 diabetes mellitus without complications; F17.200 Nicotine dependence, unspecified, uncomplicated; Z79.899 Other long term (current) drug therapy; Z88.5 Allergy status to narcotic agent
CPT/HCPCS: 71046; 87400

== ENCOUNTER 2019-04-20 09:30 | Emergency (ER) | payer MEDICARE ==
[2019-04-20 09:47] VITALS: BP 175/86
--- NOTE | 2019-04-20 10:37 | Cat Scan Report ---
CT HEAD/BRAIN WO CON INDICATION / CLINICAL INFORMATION: Pain after part of ceiling fell on head . TECHNIQUE: All CT scans at this location are performed using CT dose reduction for ALARA by means of automated e xposure control. COMPARISON: 11/04/14. FINDINGS: The ventricular system is normal in size and attenuation. No focal lesion or mass effect is seen. The re is no evidence of intracranial hemorrhage or major vessel occlusion. The calvarium is intact. There is opacification of the left mastoid air cells, new since the prior ex am. No bone destruction or sclerosis. The visualized paranasal sinuses and right mastoid air cells cl ear. IMPRESSION: 1. Left mastoiditis is new since 2014. 2. No acute intracranial abnormality or other change. Signer Name: Bradford Carrera MD Signed: 04/20/2019 10:33 AM Workstation Name: [id number]
--- NOTE | 2019-04-20 10:45 | Cat Scan Report ---
CT CERVICAL SPINE WO CON INDICATION / CLINICAL INFORMATION: Neck pain after part of ceiling fell on head . TECHNIQUE: All CT scans at this location are performed using CT dose reduction for ALARA by means of automated e xposure control. COMPARISON: None available. FINDINGS: The prevertebral soft tissues are normal. The vertebral body heights and disc spaces are well-maintai ori. There is no evidence of fracture or subluxation. I see no evidence of a herniated disc or epidur al hematoma. The lung apices are clear. IMPRESSION: No acute abnormality. Signer Name: Bradford Carrera MD Signed: 04/20/2019 10:41 AM Workstation Name: [email or web address]
--- NOTE | 2019-04-20 14:30 | Emergency Department Report ---
ED Headache HPI - General Chief Complaint: Headache Stated Complaint: HEAD/BODY PAIN Time Seen by Provider: 04/20/19 14:12 - History of Present Illness Initial Comments: Patient is a 53-year-old F [place] female who suffered a head injury 2 days ago. Patient states she has a leak in her roof in her apartment and 2 days ago she was sitting on the couch and she heard a loud sound from above and when she looked up her ceiling fell onto her head. Patient states a large piece of drywall fell from the ceiling and crashed on her. She states she immediately had a headache as well as some neck pain. Patient states there was dizziness but no loss of consciousness. Patient states headache is 8 out of 10 in severity. Neck pain is worse with movement and better with rest. She has had some mild nausea but no vomiting. Patient denies any dysfunction with moving her arms and legs. Allergies/Adverse Reactions: Allergies codeine Allergy (Verified 12/31/16 14:59) Shortness of Breath Home Medications: Ambulatory Orders Hydrocodone Bit/Acetaminophen [Lortab 7.5-500 mg] 1 each PO Q8H PRN #20 tablet 11/09/12 Ibuprofen [Motrin] 600 mg PO Q8H PRN #60 tablet 11/09/12 Lisinopril/Hydrochlorothiazide [Zestoretic 20-12.5 mg] 1 tab PO QDAY 11/09/12 Penicillin Vk [Veetids TAB] 500 mg PO QID #40 tablet 11/09/12 metFORMIN [Glucophage] 1,000 mg PO BID 11/09/12 Promethazine [Phenergan] 25 mg PO Q6H PRN #12 tablet 02/23/13 traMADoL [Ultram 50 MG tab] 50 mg PO Q6HR PRN #12 tablet 02/23/13 HYDROcodone/APAP 5-325 [[place] 5/325] 1 each PO Q6HR PRN #20 tablet 06/07/14 HYDROcodone/APAP 5-325 [[place] 5/325] 1 each PO Q6HR PRN #14 tablet 11/04/14 Penicillin Vk [Veetids TAB] 500 mg PO QID #40 tablet 11/04/14 Cyclobenzaprine [Flexeril] 10 mg PO BID PRN #10 tablet 08/04/15 methylPREDNISolone [Medrol] 4 mg PO DAILY #1 tab.ds.pk 08/04/15 traMADoL [Ultram] 50 mg PO Q6HR PRN #12 tablet 08/04/15 Amoxicillin/K Clav Tab [Augmentin 875 mg] 1 tab PO Q12HR #20 tab 12/31/16 Benzonatate [Tessalon Perle] 100 mg PO Q8H #20 capsule 12/31/16 Nystas/Diphen/Xyl Visc/Mylanta [Magic Mouthwash] 15 ml MM Q8H 10 Days udc 12/31/16 Azithromycin [Zithromax Z-JOSE A] 250 mg PO DAILY #6 tablet 07/23/17 Benzonatate [Tessalon Perle] 100 mg PO Q8H PRN #20 capsule 07/23/17 Fluconazole [Diflucan TAB] 150 mg PO ONCE #1 tablet 07/23/17 Ibuprofen [Motrin] 600 mg PO Q8H PRN #30 tablet 07/23/17 Ondansetron [Zofran Odt] 4 mg PO Q8HR PRN #20 tab.rapdis 07/23/17 Amoxicillin [Amoxicillin TAB] 875 mg PO BID #20 tablet 01/29/19 Ciprofloxacin HCl/Dexameth [Ciprodex Otic Suspension] 2 drop BID #1 bottle 01/29/19 Naproxen 500 mg PO Q12H PRN #20 tablet 01/29/19 Benzonatate 200 mg PO TID PRN #30 capsule 04/02/19 Ibuprofen [Motrin 600 MG tab] 600 mg PO Q8H PRN #15 tablet 04/02/19 HYDROcodone/APAP 5-325 [[place] 5/325] 1 each PO Q6HR PRN #14 tablet 04/20/19 Ibuprofen [Motrin 800 MG tab] 800 mg PO Q8HR PRN #14 tablet 04/20/19 methOCARBAMOL [Robaxin TAB] 500 mg PO Q6H PRN #14 tablet 04/20/19 ED Review of Systems ROS: Stated complaint: HEAD/BODY PAIN Other details as noted in HPI Comment: All other systems reviewed and negative ED Past Medical Hx - Past Medical History Previous Medical History?: Yes Hx Hypertension: Yes Hx CVA: Yes Hx Diabetes: Yes (type 2) - Surgical History Past Surgical History?: Yes Additional Surgical History: hysterectomy - Social History Smoking Status: Current Every Day Smoker Substance Use Type: None - Medications Home Medications: Home Medications Medication Instructions Recorded Confirmed Last Taken Type Hydrocodone Bit/Acetaminophen 1 each PO Q8H PRN #20 tablet 11/09/12 Unknown Rx [Lortab 7.5-500 mg] Ibuprofen [Motrin] 600 mg PO Q8H PRN #60 tablet 11/09/12 Unknown Rx Lisinopril/Hydrochlorothiazide 1 tab PO QDAY 11/09/12 11/09/12 11/08/12 21:00 History [Zestoretic 20-12.5 mg] Penicillin Vk [Veetids TAB] 500 mg PO QID #40 tablet 11/09/12 Unknown Rx metFORMIN [Glucophage] 1,000 mg PO BID 11/09/12 11/09/12 11/08/12 20:00 History Promethazine [Phenergan] 25 mg PO Q6H PRN #12 tablet 02/23/13 Unknown Rx traMADoL [Ultram 50 MG tab] 50 mg PO Q6HR PRN #12 tablet 02/23/13 Unknown Rx HYDROcodone/APAP 5-325 [[place] 1 each PO Q6HR PRN #20 tablet 06/07/14 Unknown Rx 5/325] HYDROcodone/APAP 5-325 [[place] 1 each PO Q6HR PRN #14 tablet 11/04/14 Unknown Rx 5/325] Penicillin Vk [Veetids TAB] 500 mg PO QID #40 tablet 11/04/14 Unknown Rx Cyclobenzaprine [Flexeril] 10 mg PO BID PRN #10 tablet 08/04/15 Unknown Rx methylPREDNISolone [Medrol] 4 mg PO DAILY #1 tab.ds.pk 08/04/15 Unknown Rx traMADoL [Ultram] 50 mg PO Q6HR PRN #12 tablet 08/04/15 Unknown Rx Amoxicillin/K Clav Tab [Augmentin 1 tab PO Q12HR #20 tab 12/31/16 Unknown Rx 875 mg] Benzonatate [Tessalon Perle] 100 mg PO Q8H #20 capsule 12/31/16 Unknown Rx Nystas/Diphen/Xyl Visc/Mylanta 15 ml MM Q8H 10 Days udc 12/31/16 Unknown Rx [Magic Mouthwash] Azithromycin [Zithromax Z-JOSE A] 250 mg PO DAILY #6 tablet 07/23/17 Unknown Rx Benzonatate [Tessalon Perle] 100 mg PO Q8H PRN #20 capsule 07/23/17 Unknown Rx Fluconazole [Diflucan TAB] 150 mg PO ONCE #1 tablet 07/23/17 Unknown Rx Ibuprofen [Motrin] 600 mg PO Q8H PRN #30 tablet 07/23/17 Unknown Rx Ondansetron [Zofran Odt] 4 mg PO Q8HR PRN #20 tab.rapdis 07/23/17 Unknown Rx Amoxicillin [Amoxicillin TAB] 875 mg PO BID #20 tablet 01/29/19 Unknown Rx Ciprofloxacin HCl/Dexameth 2 drop BID #1 bottle 01/29/19 Unknown Rx [Ciprodex Otic Suspension] Naproxen 500 mg PO Q12H PRN #20 tablet 01/29/19 Unknown Rx Benzonatate 200 mg PO TID PRN #30 capsule 04/02/19 Unknown Rx Ibuprofen [Motrin 600 MG tab] 600 mg PO Q8H PRN #15 tablet 04/02/19 Unknown Rx HYDROcodone/APAP 5-325 [[place] 1 each PO Q6HR PRN #14 tablet 04/20/19 Unknown Rx 5/325] Ibuprofen [Motrin 800 MG tab] 800 mg PO Q8HR PRN #14 tablet 04/20/19 Unknown Rx methOCARBAMOL [Robaxin TAB] 500 mg PO Q6H PRN #14 tablet 04/20/19 Unknown Rx ED Physical Exam - General Limitations: No Limitations General appearance: alert, in no apparent distress - Head Head exam: Present: atraumatic, normocephalic - Eye Eye exam: Present: normal appearance, PERRL, EOMI - ENT ENT exam: Present: normal orophraynx, mucous membranes moist - Neck Neck exam: Present: normal inspection, tenderness. Absent: full ROM (seondary to pain) - Respiratory Respiratory exam: Present: normal lung sounds bilaterally. Absent: respiratory distress, wheezes, rales, rhonchi - Cardiovascular Cardiovascular Exam: Present: regular rate, normal rhythm. Absent: systolic murmur, diastolic murmur, rubs, gallop - GI/Abdominal GI/Abdominal exam: Present: soft, normal bowel sounds. Absent: distended, tenderness, guarding, rebound - Extremities Exam Extremities exam: Present: normal inspection - Back Exam Back exam: Present: normal inspection - Neurological Exam Neurological exam: Present: alert, oriented X3 - Psychiatric Psychiatric exam: Present: normal affect, normal mood - Skin Skin exam: Present: warm, dry, intact, normal color. Absent: rash ED Course Vital Signs 04/20/19 09:41 Temperature 97.8 F Pulse Rate 79 Respiratory 18 Rate Blood Pressure 175/86 O2 Sat by Pulse 99 Oximetry ED Medical Decision Making - Radiology Data [address] [address] Cat Scan Report Signed Patient: JASON GARCIA MR#: [id number] : 1965 Acct:[id number] Age/Sex: 53 / F ADM Date: 04/20/19 Loc: ED Attending Dr: Ordering Physician: ELIZABET JAMES NP Date of Service: 04/20/19 Procedure(s): CT cervical spine wo con Accession Number(s): [id number] cc: ELIZABET JAMES NP CT CERVICAL SPINE WO CON INDICATION / CLINICAL INFORMATION: Neck pain after part of ceiling fell on head . TECHNIQUE: All CT scans at this location are performed using CT dose reduction for ALARA by means of automated exposure control. COMPARISON: None available. FINDINGS: The prevertebral soft tissues are normal. The vertebral body heights and disc spaces are well- maintained. There is no evidence of fracture or subluxation. I see no evidence of a herniated disc or epidural hematoma. The lung apices are clear. IMPRESSION: No acute abnormality. Signer Name: Bradford Carrera MD Signed: 04/20/2019 10:41 AM Workstation Name: [id number] [address] [address] Cat Scan Report Signed Patient: JASON GARCIA MR#: [id number] : 1965 Acct:[id number] Age/Sex: 53 / F ADM Date: 04/20/19 Loc: ED Attending Dr: Ordering Physician: ELIZABET JAMES NP Date of Service: 04/20/19 Procedure(s): CT head/brain wo con Accession Number(s): [id number] cc: ELIZABET JAMES NP CT HEAD/BRAIN WO CON INDICATION / CLINICAL INFORMATION: Pain after part of ceiling fell on head . TECHNIQUE: All CT scans at this location are performed using CT dose reduction for ALARA by means of automated exposure control. COMPARISON: 11/04/14. FINDINGS: The ventricular system is normal in size and attenuation. No focal lesion or mass effect is seen. There is no evidence of intracranial hemorrhage or major vessel occlusion. The calvarium is intact. There is opacification of the left mastoid air cells, new since the prior exam. No bone destruction or sclerosis. The visualized paranasal sinuses and right mastoid air cells clear. IMPRESSION: 1. Left mastoiditis is new since 2014. 2. No acute intracranial abnormality or other change. Signer Name: Bradford Carrera MD Signed: 04/20/2019 10:33 AM Workstation Name: [id number] - Medical Decision Making Patient suffered a head injury and neck injury 2 days ago when a large piece of drywall fell from her ceiling onto her head. Patient has had persistent dizziness with headache. Patient likely had a mild concussion. Patient also suffered a cervical strain. CT of the head and cervical spine showed no acute fracture or intracranial bleeding. Patient will be discharged home with follow- up with primary care. Patient given medication for symptomatic relief. Critical care attestation.: If time is entered above; I have spent that time in minutes in the direct care of this critically ill patient, excluding procedure time. ED Disposition Clinical Impression: Concussion Qualifiers: Encounter type: initial encounter Loss of consciousness presence/duration: without LOC Qualified Code(s): S06.0X0A - Concussion without loss of consciousness, initial encounter Closed head injury Qualifiers: Encounter type: initial encounter Qualified Code(s): S09.90XA - Unspecified injury of head, initial encounter Cervical strain, acute Qualifiers: Encounter type: initial encounter Qualified Code(s): S16.1XXA - Strain of muscle, fascia and tendon at neck level, initial encounter Disposition: DC-01 TO HOME OR SELFCARE Is pt being admited?: No Does the pt Need Aspirin: No Condition: Stable Instructions: Concussion (ED), Cervical Spine Strain (ED) Referrals: LOREN RING MD [Staff Physician] - 3-5 Days Time of Disposition: 14:30
[2019-04-20] MEDS ORDERED: HYDROcodone/ACETAMINOPHEN 5-325 MG TAB PO ONE (14:33)
[2019-04-20] MEDS ORDERED: IBUPROFEN 800 MG TAB PO ONE (14:33)
== END 2019-04-20 15:05 | disposition home or self-care (01) ==
LOC: ED 09:30
DX: S06.0X0A Concussion without loss of consciousness, initial encounter (principal); S16.1XXA Strain of muscle, fascia and tendon at neck level, initial encounter; I10 Essential (primary) hypertension; E11.9 Type 2 diabetes mellitus without complications; F17.200 Nicotine dependence, unspecified, uncomplicated; Z90.710 Acquired absence of both cervix and uterus; Z86.73 Personal history of transient ischemic attack (TIA), and cerebral infarction without residual deficits; Z79.899 Other long term (current) drug therapy; Z88.6 Allergy status to analgesic agent; X58.XXXA Exposure to other specified factors, initial encounter; Y93.89 Activity, other specified; Y92.009 Unspecified place in unspecified non-institutional (private) residence as the place of occurrence of the external cause; Y99.8 Other external cause status
CPT/HCPCS: 70450; 72125; 99283

== ENCOUNTER 2019-10-08 17:18 | Emergency (ER) | payer MEDICARE ==
[2019-10-08] MEDS ORDERED: IBUPROFEN 600 MG TAB PO ONE (17:52)
--- NOTE | 2019-10-08 18:28 | XRay Report ---
LUMBOSACRAL SPINE, 3 VIEWS INDICATION / CLINICAL INFORMATION: Fall. Back pain COMPARISON: None available. FINDINGS: Vertebral body heights are maintained. There is no evidence for fracture. Posterior alignment is norm al. There is mild degenerative disc disease at L4-L5 and L5-S1. Mild to moderate calcific plaque is seen within the distal abdominal aorta and common iliac arteries. IMPRESSION: 1. No evidence for fracture or traumatic malalignment. 2. Mild degenerative disc disease at L4-5 and L5-S1 Signer Name: Devora Alegria MD Signed: 10/08/2019 6:24 PM Workstation Name: [id number]
--- NOTE | 2019-10-08 21:37 | Emergency Department Report ---
ED Back Pain/Injury HPI - General Chief Complaint: Back Pain/Injury Stated Complaint: FELL BACK HIT STAIRS Time Seen by Provider: 10/08/19 20:48 Source: patient Limitations: No Limitations - History of Present Illness Initial Comments: 54-year-old -Lao female reports that she is fell and hit the back against the stairs. Patient reports that she slipped on 2 metal steps. This happened this morning. Patient denies any head injury no loss of consciousness no symptoms prior to her fall. Patient reports she took ibuprofen 800 mg but did not help when she decided to come in to be evaluated. Patient does have a primary care provider [facility]. She has a history of a CVA diabetes and hypertension. MD Complaint: back pain, back injury -: This morning Similar Symptoms Previously: No Place: home Severity: moderate Severity scale (0 -10): 9 Quality: sharp Consistency: constant Improves With: none Worsens With: movement Context: fall Associated Symptoms: denies other symptoms - Related Data Home Medications Medication Instructions Recorded Confirmed Last Taken Lisinopril/Hydrochlorothiazide 1 tab PO QDAY 11/09/12 11/09/12 11/08/12 21:00 [Zestoretic 20-12.5 mg] metFORMIN [Glucophage] 1,000 mg PO BID 11/09/12 11/09/12 11/08/12 20:00 Previous Rx's Medication Instructions Recorded Last Taken Type Hydrocodone Bit/Acetaminophen 1 each PO Q8H PRN #20 tablet 11/09/12 Unknown Rx [Lortab 7.5-500 mg] Ibuprofen [Motrin] 600 mg PO Q8H PRN #60 tablet 11/09/12 Unknown Rx Penicillin Vk [Veetids TAB] 500 mg PO QID #40 tablet 11/09/12 Unknown Rx Promethazine [Phenergan] 25 mg PO Q6H PRN #12 tablet 02/23/13 Unknown Rx traMADoL [Ultram 50 MG tab] 50 mg PO Q6HR PRN #12 tablet 02/23/13 Unknown Rx HYDROcodone/APAP 5-325 [[place] 1 each PO Q6HR PRN #20 tablet 06/07/14 Unknown Rx 5/325] HYDROcodone/APAP 5-325 [[place] 1 each PO Q6HR PRN #14 tablet 11/04/14 Unknown Rx 5/325] Penicillin Vk [Veetids TAB] 500 mg PO QID #40 tablet 11/04/14 Unknown Rx Cyclobenzaprine [Flexeril] 10 mg PO BID PRN #10 tablet 08/04/15 Unknown Rx methylPREDNISolone [Medrol] 4 mg PO DAILY #1 tab.ds.pk 08/04/15 Unknown Rx traMADoL [Ultram] 50 mg PO Q6HR PRN #12 tablet 08/04/15 Unknown Rx Amoxicillin/K Clav Tab [Augmentin 1 tab PO Q12HR #20 tab 12/31/16 Unknown Rx 875 mg] Benzonatate [Tessalon Perle] 100 mg PO Q8H #20 capsule 12/31/16 Unknown Rx Nystas/Diphen/Xyl Visc/Mylanta 15 ml MM Q8H 10 Days udc 12/31/16 Unknown Rx [Magic Mouthwash] Azithromycin [Zithromax Z-JOSE A] 250 mg PO DAILY #6 tablet 07/23/17 Unknown Rx Benzonatate [Tessalon Perle] 100 mg PO Q8H PRN #20 capsule 07/23/17 Unknown Rx Fluconazole (Nf) [Diflucan TAB] 150 mg PO ONCE #1 tablet 07/23/17 Unknown Rx Ibuprofen [Motrin] 600 mg PO Q8H PRN #30 tablet 07/23/17 Unknown Rx Ondansetron [Zofran Odt] 4 mg PO Q8HR PRN #20 tab.rapdis 07/23/17 Unknown Rx Amoxicillin [Amoxicillin TAB] 875 mg PO BID #20 tablet 01/29/19 Unknown Rx Ciprofloxacin HCl/Dexameth 2 drop BID #1 bottle 01/29/19 Unknown Rx [Ciprodex Otic Suspension] Naproxen 500 mg PO Q12H PRN #20 tablet 01/29/19 Unknown Rx Benzonatate 200 mg PO TID PRN #30 capsule 04/02/19 Unknown Rx Ibuprofen [Motrin 600 MG tab] 600 mg PO Q8H PRN #15 tablet 04/02/19 Unknown Rx HYDROcodone/APAP 5-325 [[place] 1 each PO Q6HR PRN #14 tablet 04/20/19 Unknown Rx 5/325] Ibuprofen [Motrin 800 MG tab] 800 mg PO Q8HR PRN #14 tablet 04/20/19 Unknown Rx methOCARBAMOL [Robaxin TAB] 500 mg PO Q6H PRN #14 tablet 04/20/19 Unknown Rx traMADoL [Ultram 50 MG tab] 50 mg PO Q4HR PRN #12 tablet 10/08/19 Unknown Rx Allergies Allergy/AdvReac Type Severity Reaction Status Date / Time codeine Allergy Shortness Verified 12/31/16 14:59 of Breath ED Review of Systems ROS: Stated complaint: FELL BACK HIT STAIRS Other details as noted in HPI Comment: All other systems reviewed and negative ED Past Medical Hx - Past Medical History Hx Hypertension: Yes Hx CVA: Yes Hx Diabetes: Yes (type 2) - Surgical History Additional Surgical History: hysterectomy - Social History Smoking Status: Current Every Day Smoker - Medications Home Medications: Home Medications Medication Instructions Recorded Confirmed Last Taken Type Hydrocodone Bit/Acetaminophen 1 each PO Q8H PRN #20 tablet 11/09/12 Unknown Rx [Lortab 7.5-500 mg] Ibuprofen [Motrin] 600 mg PO Q8H PRN #60 tablet 11/09/12 Unknown Rx Lisinopril/Hydrochlorothiazide 1 tab PO QDAY 11/09/12 11/09/12 11/08/12 21:00 History [Zestoretic 20-12.5 mg] Penicillin Vk [Veetids TAB] 500 mg PO QID #40 tablet 11/09/12 Unknown Rx metFORMIN [Glucophage] 1,000 mg PO BID 11/09/12 11/09/12 11/08/12 20:00 History Promethazine [Phenergan] 25 mg PO Q6H PRN #12 tablet 02/23/13 Unknown Rx traMADoL [Ultram 50 MG tab] 50 mg PO Q6HR PRN #12 tablet 02/23/13 Unknown Rx HYDROcodone/APAP 5-325 [[place] 1 each PO Q6HR PRN #20 tablet 06/07/14 Unknown Rx 5/325] HYDROcodone/APAP 5-325 [[place] 1 each PO Q6HR PRN #14 tablet 11/04/14 Unknown Rx 5/325] Penicillin Vk [Veetids TAB] 500 mg PO QID #40 tablet 11/04/14 Unknown Rx Cyclobenzaprine [Flexeril] 10 mg PO BID PRN #10 tablet 08/04/15 Unknown Rx methylPREDNISolone [Medrol] 4 mg PO DAILY #1 tab.ds.pk 08/04/15 Unknown Rx traMADoL [Ultram] 50 mg PO Q6HR PRN #12 tablet 08/04/15 Unknown Rx Amoxicillin/K Clav Tab [Augmentin 1 tab PO Q12HR #20 tab 12/31/16 Unknown Rx 875 mg] Benzonatate [Tessalon Perle] 100 mg PO Q8H #20 capsule 12/31/16 Unknown Rx Nystas/Diphen/Xyl Visc/Mylanta 15 ml MM Q8H 10 Days udc 12/31/16 Unknown Rx [Magic Mouthwash] Azithromycin [Zithromax Z-JOSE A] 250 mg PO DAILY #6 tablet 07/23/17 Unknown Rx Benzonatate [Tessalon Perle] 100 mg PO Q8H PRN #20 capsule 07/23/17 Unknown Rx Fluconazole (Nf) [Diflucan TAB] 150 mg PO ONCE #1 tablet 07/23/17 Unknown Rx Ibuprofen [Motrin] 600 mg PO Q8H PRN #30 tablet 07/23/17 Unknown Rx Ondansetron [Zofran Odt] 4 mg PO Q8HR PRN #20 tab.rapdis 07/23/17 Unknown Rx Amoxicillin [Amoxicillin TAB] 875 mg PO BID #20 tablet 01/29/19 Unknown Rx Ciprofloxacin HCl/Dexameth 2 drop BID #1 bottle 01/29/19 Unknown Rx [Ciprodex Otic Suspension] Naproxen 500 mg PO Q12H PRN #20 tablet 01/29/19 Unknown Rx Benzonatate 200 mg PO TID PRN #30 capsule 04/02/19 Unknown Rx Ibuprofen [Motrin 600 MG tab] 600 mg PO Q8H PRN #15 tablet 04/02/19 Unknown Rx HYDROcodone/APAP 5-325 [[place] 1 each PO Q6HR PRN #14 tablet 04/20/19 Unknown Rx 5/325] Ibuprofen [Motrin 800 MG tab] 800 mg PO Q8HR PRN #14 tablet 04/20/19 Unknown Rx methOCARBAMOL [Robaxin TAB] 500 mg PO Q6H PRN #14 tablet 04/20/19 Unknown Rx traMADoL [Ultram 50 MG tab] 50 mg PO Q4HR PRN #12 tablet 10/08/19 Unknown Rx ED Physical Exam - General Limitations: No Limitations General appearance: alert, in no apparent distress - Head Head exam: Present: atraumatic, normocephalic - Eye Eye exam: Present: normal appearance - ENT ENT exam: Present: mucous membranes moist - Neck Neck exam: Present: normal inspection - Back Exam Back exam: Present: full ROM, muscle spasm, paraspinal tenderness - Neurological Exam Neurological exam: Present: alert, oriented X3, normal gait - Psychiatric Psychiatric exam: Present: normal affect, normal mood - Skin Skin exam: Present: warm, dry, intact, normal color. Absent: rash ED Course Vital Signs 10/08/19 17:57 Temperature 98.3 F Pulse Rate 65 Respiratory 18 Rate Blood Pressure 126/68 O2 Sat by Pulse 97 Oximetry ED Medical Decision Making - Radiology Data Radiology results: report reviewed Referring Physician:ED AXELPatient Name:JASON GARCIAPatient ID:[id number] of :[id number]:FemaleAccession:[id number] Date:1688-13-50Etoqiz Status:Finalized Findings [address] [address] XRay Report Signed Patient: JASON GARCIA MR#: [id number] : 1965 Acct:[id number] Age/Sex: 54 / F ADM Date: 10/08/19 Loc: ED Attending Dr: Ordering Physician: SPENCER REYNA MD Date of Service: 10/08/19 Procedure(s): XR spine lumbosacral 2-3V Accession Number(s): [id number] cc: SPENCER REYNA MD Fluoro Time In Minutes: LUMBOSACRAL SPINE, 3 VIEWS INDICATION / CLINICAL INFORMATION: Fall. Back pain COMPARISON: None available. FINDINGS: Vertebral body heights are maintained. There is no evidence for fracture. Posterior alignment is normal. There is mild degenerative disc disease at L4-L5 and L5-S1. Mild to moderate calcific plaque is seen within the distal abdominal aorta and common iliac arteries. IMPRESSION: 1. No evidence for fracture or traumatic malalignment. 2. Mild degenerative disc disease at L4-5 and L5-S1 Signer Name: Devora Alegria MD Signed: 10/08/2019 6:24 PM Workstation Name: [id number] Transcribed By: Dictated By: Devora Alegria MD Electronically Authenticated By: Devora Alegria MD Signed Date/Time: 10/08/191823 DD/ 22 TD/TT: - Medical Decision Making 54-year-old -Lao female reports that she is fell and hit the back against the stairs. Patient reports that she slipped on 2 metal steps. This happened this morning. Patient denies any head injury no loss of consciousness no symptoms prior to her fall. Patient reports she took ibuprofen 800 mg but did not help when she decided to come in to be evaluated. Patient does have a primary care provider [facility]. She has a history of a CVA diabetes and hypertension. X-ray of the lumbar sacral shows no acute fractures or dislocation. She does have mild degenerative disc changes. Patient was given ibuprofen here in the emergency room and states that it is still having pain that is pretty intense. Patient be discharged home on a few tramadol and to follow-up with her primary care provider at [facility]. Critical care attestation.: If time is entered above; I have spent that time in minutes in the direct care of this critically ill patient, excluding procedure time. ED Disposition Clinical Impression: Fall Qualifiers: Encounter type: initial encounter Qualified Code(s): W19.XXXA - Unspecified fall, initial encounter Lumbar contusion Qualifiers: Encounter type: initial encounter Qualified Code(s): S30.0XXA - Contusion of lower back and pelvis, initial encounter Disposition: TO HOME OR SELFCARE Is pt being admited?: No Does the pt Need Aspirin: No Condition: Stable Instructions: Acute Low Back Pain (ED), Fall Prevention for Older Adults (ED) Additional Instructions: X-ray of back is negative for any acute fractures or dislocations. It does show that you have arthritis of your back. Please take tramadol for pain continue with your ibuprofen and to follow-up with your primary care provider. Be sure to increase your water intake while taking medication. Be sure to not operate heavy machinery while taking tramadol. Prescriptions: traMADoL [Ultram 50 MG tab] 50 mg PO Q4HR PRN #12 tablet PRN Reason: Pain Referrals: PRIMARY CARE, [Primary Care Provider] - 3-5 Days [facility] [Provider Group] - 3-5 Days
[2019-10-08 22:10] VITALS: BP 129/72
== END 2019-10-08 22:00 | disposition home or self-care (01) ==
LOC: ED 17:18
DX: S30.0XXA Contusion of lower back and pelvis, initial encounter (principal); I10 Essential (primary) hypertension; E11.9 Type 2 diabetes mellitus without complications; Z86.73 Personal history of transient ischemic attack (TIA), and cerebral infarction without residual deficits; F17.200 Nicotine dependence, unspecified, uncomplicated; Z79.1 Long term (current) use of non-steroidal anti-inflammatories (NSAID); Z79.2 Long term (current) use of antibiotics; Z79.899 Other long term (current) drug therapy; W10.9XXA Fall (on) (from) unspecified stairs and steps, initial encounter; Y93.89 Activity, other specified; Y92.89 Other specified places as the place of occurrence of the external cause; Y99.8 Other external cause status
CPT/HCPCS: 72100; 99283

== ENCOUNTER 2020-01-09 12:29 | Emergency (ER) | payer MEDICARE ==
[2020-01-09 13:03] VITALS: BP 142/70
--- NOTE | 2020-01-09 13:29 | Event Note ---
ED Screening Note Date of service: 01/09/20 Time: 13:28 ED Screening Note: 54-year-old -Polish female presents to the emergency room for vaginal burning and burning when she pees since Sunday. Patient states she thinks she scratches self and has had pain ever since. Patient reports that she is [id number] creams for vaginal area with no relief. This initial assessment/diagnostic orders/clinical plan/treatment(s) is/are subject to change based on patients health status, clinical progression and re- assessment by fellow clinical providers in the ED. Further treatment and workup at subsequent clinical providers discretion. Patient/guardian urged not to elope from the ED as their condition may be serious if not clinically assessed and managed. Initial orders include:
[2020-01-09 14:45] LABS: Bacteria,Urine 2+ /HPF (Negative); Bilirubin,Urine NEG (Negative); Blood,Urine MOD (Negative); Color,Urine Yellow (Yellow); Mucus,Urine FEW /HPF; Protein,Urine <15 mg/dL mg/dL (Negative)
[2020-01-09 14:47] LABS: WBC,Urine > 182.0 /HPF (0.0-6.0)
[2020-01-09] MEDS ORDERED: LIDOCAINE-MPF (1%) 10 MG/1 ML VIAL 5 ML INFILTRATI ONE (15:12)
--- NOTE | 2020-01-09 15:23 | Emergency Department Report ---
ED Female HPI - General Chief complaint: Urogenital-Female Stated complaint: FEMALE ISSUES Time Seen by Provider: 01/09/20 15:00 Source: patient Mode of arrival: Ambulatory Limitations: No Limitations - History of Present Illness Initial comments: Patient is a 54-year-old female presents emergency room with complaints of vaginal itching that began a few days ago. She states that she has been scratching in that area and has now become irritated. She states that she has noticed a thick white vaginal discharge. She denies any concerns for STDs. She states that she does have dysuria. She denies any nausea, vomiting, diarrhea, fever, abdominal pain, back pain. She has a past medical history of hypertension and diabetes. No allergies to medications. She states that she had a hysterectomy. - Related Data Home Medications Medication Instructions Recorded Confirmed Last Taken Lisinopril/Hydrochlorothiazide 1 tab PO QDAY 11/09/12 11/09/12 11/08/12 21:00 [Zestoretic 20-12.5 mg] metFORMIN [Glucophage] 1,000 mg PO BID 11/09/12 11/09/12 11/08/12 20:00 Previous Rx's Medication Instructions Recorded Last Taken Type Hydrocodone Bit/Acetaminophen 1 each PO Q8H PRN #20 tablet 11/09/12 Unknown Rx [Lortab 7.5-500 mg] Ibuprofen [Motrin] 600 mg PO Q8H PRN #60 tablet 11/09/12 Unknown Rx Penicillin Vk [Veetids TAB] 500 mg PO QID #40 tablet 11/09/12 Unknown Rx Promethazine [Phenergan] 25 mg PO Q6H PRN #12 tablet 02/23/13 Unknown Rx traMADoL [Ultram 50 MG tab] 50 mg PO Q6HR PRN #12 tablet 02/23/13 Unknown Rx HYDROcodone/APAP 5-325 [[place] 1 each PO Q6HR PRN #20 tablet 06/07/14 Unknown Rx 5/325] HYDROcodone/APAP 5-325 [[place] 1 each PO Q6HR PRN #14 tablet 11/04/14 Unknown Rx 5/325] Penicillin Vk [Veetids TAB] 500 mg PO QID #40 tablet 11/04/14 Unknown Rx Cyclobenzaprine [Flexeril] 10 mg PO BID PRN #10 tablet 08/04/15 Unknown Rx methylPREDNISolone [Medrol] 4 mg PO DAILY #1 tab.ds.pk 08/04/15 Unknown Rx traMADoL [Ultram] 50 mg PO Q6HR PRN #12 tablet 08/04/15 Unknown Rx Amoxicillin/K Clav Tab [Augmentin 1 tab PO Q12HR #20 tab 12/31/16 Unknown Rx 875 mg] Benzonatate [Tessalon Perle] 100 mg PO Q8H #20 capsule 12/31/16 Unknown Rx Nystas/Diphen/Xyl Visc/Mylanta 15 ml MM Q8H 10 Days udc 12/31/16 Unknown Rx [Magic Mouthwash] Azithromycin [Zithromax Z-JOSE A] 250 mg PO DAILY #6 tablet 07/23/17 Unknown Rx Benzonatate [Tessalon Perle] 100 mg PO Q8H PRN #20 capsule 07/23/17 Unknown Rx Fluconazole (Nf) [Diflucan TAB] 150 mg PO ONCE #1 tablet 07/23/17 Unknown Rx Ibuprofen [Motrin] 600 mg PO Q8H PRN #30 tablet 07/23/17 Unknown Rx Ondansetron [Zofran Odt] 4 mg PO Q8HR PRN #20 tab.rapdis 07/23/17 Unknown Rx Amoxicillin [Amoxicillin TAB] 875 mg PO BID #20 tablet 01/29/19 Unknown Rx Ciprofloxacin HCl/Dexameth 2 drop BID #1 bottle 01/29/19 Unknown Rx [Ciprodex Otic Suspension] Naproxen 500 mg PO Q12H PRN #20 tablet 01/29/19 Unknown Rx Benzonatate 200 mg PO TID PRN #30 capsule 04/02/19 Unknown Rx Ibuprofen [Motrin 600 MG tab] 600 mg PO Q8H PRN #15 tablet 04/02/19 Unknown Rx HYDROcodone/APAP 5-325 [[place] 1 each PO Q6HR PRN #14 tablet 04/20/19 Unknown Rx 5/325] Ibuprofen [Motrin 800 MG tab] 800 mg PO Q8HR PRN #14 tablet 04/20/19 Unknown Rx methOCARBAMOL [Robaxin TAB] 500 mg PO Q6H PRN #14 tablet 04/20/19 Unknown Rx traMADoL [Ultram 50 MG tab] 50 mg PO Q4HR PRN #12 tablet 10/08/19 Unknown Rx Acetaminophen/Codeine [Tylenol 1 tab PO Q8HR PRN #7 tab 01/09/20 Unknown Rx /Codeine # 3 tab] Fluconazole (Nf) [Diflucan TAB] 150 mg PO ONCE #1 tablet 01/09/20 Unknown Rx Phenazopyridine [Pyridium] 100 mg PO TID #12 tab 01/09/20 Unknown Rx cephALEXin [Keflex] 500 mg PO BID 10 Days #20 cap 01/09/20 Unknown Rx Allergies Allergy/AdvReac Type Severity Reaction Status Date / Time No Known Allergies Allergy Unverified 01/09/20 13:04 ED Review of Systems ROS: Stated complaint: FEMALE ISSUES Other details as noted in HPI Comment: All other systems reviewed and negative ED Past Medical Hx - Past Medical History Hx Hypertension: Yes Hx CVA: Yes Hx Diabetes: Yes (type 2) - Surgical History Additional Surgical History: hysterectomy - Social History Smoking Status: Current Every Day Smoker - Medications Home Medications: Home Medications Medication Instructions Recorded Confirmed Last Taken Type Hydrocodone Bit/Acetaminophen 1 each PO Q8H PRN #20 tablet 11/09/12 Unknown Rx [Lortab 7.5-500 mg] Ibuprofen [Motrin] 600 mg PO Q8H PRN #60 tablet 11/09/12 Unknown Rx Lisinopril/Hydrochlorothiazide 1 tab PO QDAY 11/09/12 11/09/12 11/08/12 21:00 History [Zestoretic 20-12.5 mg] Penicillin Vk [Veetids TAB] 500 mg PO QID #40 tablet 11/09/12 Unknown Rx metFORMIN [Glucophage] 1,000 mg PO BID 11/09/12 11/09/12 11/08/12 20:00 History Promethazine [Phenergan] 25 mg PO Q6H PRN #12 tablet 02/23/13 Unknown Rx traMADoL [Ultram 50 MG tab] 50 mg PO Q6HR PRN #12 tablet 02/23/13 Unknown Rx HYDROcodone/APAP 5-325 [[place] 1 each PO Q6HR PRN #20 tablet 06/07/14 Unknown Rx 5/325] HYDROcodone/APAP 5-325 [[place] 1 each PO Q6HR PRN #14 tablet 11/04/14 Unknown Rx 5/325] Penicillin Vk [Veetids TAB] 500 mg PO QID #40 tablet 09/23/15 Unknown Rx Cyclobenzaprine [Flexeril] 10 mg PO BID PRN #10 tablet 08/04/15 Unknown Rx methylPREDNISolone [Medrol] 4 mg PO DAILY #1 tab.ds.pk 08/04/15 Unknown Rx traMADoL [Ultram] 50 mg PO Q6HR PRN #12 tablet 08/04/15 Unknown Rx Amoxicillin/K Clav Tab [Augmentin 1 tab PO Q12HR #20 tab 12/31/16 Unknown Rx 875 mg] Benzonatate [Tessalon Perle] 100 mg PO Q8H #20 capsule 12/31/16 Unknown Rx Nystas/Diphen/Xyl Visc/Mylanta 15 ml MM Q8H 10 Days udc 12/31/16 Unknown Rx [Magic Mouthwash] Azithromycin [Zithromax Z-JOSE A] 250 mg PO DAILY #6 tablet 07/23/17 Unknown Rx Benzonatate [Tessalon Perle] 100 mg PO Q8H PRN #20 capsule 07/23/17 Unknown Rx Fluconazole (Nf) [Diflucan TAB] 150 mg PO ONCE #1 tablet 07/23/17 Unknown Rx Ibuprofen [Motrin] 600 mg PO Q8H PRN #30 tablet 07/23/17 Unknown Rx Ondansetron [Zofran Odt] 4 mg PO Q8HR PRN #20 tab.rapdis 07/23/17 Unknown Rx Amoxicillin [Amoxicillin TAB] 875 mg PO BID #20 tablet 01/29/19 Unknown Rx Ciprofloxacin HCl/Dexameth 2 drop BID #1 bottle 01/29/19 Unknown Rx [Ciprodex Otic Suspension] Naproxen 500 mg PO Q12H PRN #20 tablet 01/29/19 Unknown Rx Benzonatate 200 mg PO TID PRN #30 capsule 04/02/19 Unknown Rx Ibuprofen [Motrin 600 MG tab] 600 mg PO Q8H PRN #15 tablet 04/02/19 Unknown Rx HYDROcodone/APAP 5-325 [[place] 1 each PO Q6HR PRN #14 tablet 04/20/19 Unknown Rx 5/325] Ibuprofen [Motrin 800 MG tab] 800 mg PO Q8HR PRN #14 tablet 04/20/19 Unknown Rx methOCARBAMOL [Robaxin TAB] 500 mg PO Q6H PRN #14 tablet 04/20/19 Unknown Rx traMADoL [Ultram 50 MG tab] 50 mg PO Q4HR PRN #12 tablet 10/08/19 Unknown Rx Acetaminophen/Codeine [Tylenol 1 tab PO Q8HR PRN #7 tab 01/09/20 Unknown Rx /Codeine # 3 tab] Fluconazole (Nf) [Diflucan TAB] 150 mg PO ONCE #1 tablet 01/09/20 Unknown Rx Phenazopyridine [Pyridium] 100 mg PO TID #12 tab 01/09/20 Unknown Rx cephALEXin [Keflex] 500 mg PO BID 10 Days #20 cap 01/09/20 Unknown Rx ED Physical Exam - General Limitations: No Limitations General appearance: alert, in no apparent distress - Head Head exam: Present: atraumatic, normocephalic - Eye Eye exam: Present: normal appearance - ENT ENT exam: Present: mucous membranes moist - Respiratory Respiratory exam: Present: normal lung sounds bilaterally. Absent: respiratory distress, wheezes, rales, rhonchi, stridor, chest wall tenderness, accessory muscle use, decreased breath sounds, prolonged expiratory - Cardiovascular Cardiovascular Exam: Present: regular rate, normal rhythm, normal heart sounds. Absent: systolic murmur, diastolic murmur, rubs, gallop - GI/Abdominal GI/Abdominal exam: Present: soft, normal bowel sounds. Absent: distended, tenderness, guarding, rebound, rigid - External exam: Present: other (pt deferred) - Back Exam Back exam: Absent: CVA tenderness (R), CVA tenderness (L) - Neurological Exam Neurological exam: Present: alert, oriented X3 - Psychiatric Psychiatric exam: Present: normal affect, normal mood - Skin Skin exam: Present: warm, dry, intact ED Course Vital Signs 01/09/20 13:00 Temperature 98.7 F Pulse Rate 80 Respiratory 20 Rate Blood Pressure 142/70 O2 Sat by Pulse 96 Oximetry ED Medical Decision Making - Lab Data Lab Results 01/09/20 Range/Units 14:04 Urine Color Yellow (Yellow) Urine Turbidity Cloudy (Clear) Urine pH 6.0 (5.0-7.0) Ur Specific [place] 1.029 (1.003-1.030) Urine Protein <15 mg/dl (Negative) mg/dL Urine Glucose (UA) >=500 (Negative) mg/dL Urine Ketones Neg (Negative) mg/dL Urine Blood Mod (Negative) Urine Nitrite Neg (Negative) Urine Bilirubin Neg (Negative) Urine Urobilinogen 4.0 (<2.0) mg/dL Ur Leukocyte Esterase Lg (Negative) Urine WBC (Auto) > 182.0 H (0.0-6.0) /HPF Urine RBC (Auto) 50.0 (0.0-6.0) /HPF U Epithel Cells (Auto) 13.0 (0-13.0) /HPF Urine Bacteria (Auto) 2+ (Negative) /HPF Urine Mucus Few /HPF - Medical Decision Making Patient is a 54-year-old female presents emergency room with complaints of vaginal itching that began a few days ago. She states that she has been scratching in that area and has now become irritated. She states that she has noticed a thick white vaginal discharge. She denies any concerns for STDs. She states that she does have dysuria. She denies any nausea, vomiting, diarrhea, fever, abdominal pain, back pain. She has a past medical history of hypertension and diabetes. No allergies to medications. She states that she had a hysterectomy. Vitals are normal. No abdominal tenderness on exam, no CVA tenderness, no guarding, no rebound, no rigidity, normal bowel sounds. UA shows evidence of significant UTI. Patient given 1 g of ceftriaxone IM while in emergency department. Symptoms likely related to a vaginitis and UTI. Patient given prescription for fluconazole, Pyridium, Tylenol with codeine, Keflex. Advised patient Please take medication as prescribed. Increase your water intake. medication may turn your urine orange. do not drive or operate heavy machinery while taking pain medication. Please use Monistat ointment [id number] to help with the irritation. Follow-up with your primary care doctor. Please have your urine retested by your primary care doctor for clearance of bacteria. Return to emergency room for any new or worsening symptoms. Critical care attestation.: If time is entered above; I have spent that time in minutes in the direct care of this critically ill patient, excluding procedure time. ED Disposition Clinical Impression: Vulvovaginal candidiasis UTI (urinary tract infection) Qualifiers: Urinary tract infection type: acute cystitis Hematuria presence: with hematuria Qualified Code(s): N30.01 - Acute cystitis with hematuria Disposition: TO HOME OR SELFCARE Is pt being admited?: No Does the pt Need Aspirin: No Condition: Stable Instructions: Vaginal Yeast Infection, Adult, Urinary Tract Infection, Adult, [id number] Additional Instructions: Please take medication as prescribed. Increase your water intake. medication may turn your urine orange. do not drive or operate heavy machinery while taking pain medication. Please use Monistat ointment [id number] to help with the irritation. Follow-up with your primary care doctor. Please have your urine retested by your primary care doctor for clearance of bacteria. Return to emergency room for any new or worsening symptoms. Prescriptions: Fluconazole (Nf) [Diflucan TAB] 150 mg PO ONCE #1 tablet cephALEXin [Keflex] 500 mg PO BID 10 Days #20 cap Phenazopyridine [Pyridium] 100 mg PO TID #12 tab Acetaminophen/Codeine [Tylenol /Codeine # 3 tab] 1 tab PO Q8HR PRN #7 tab PRN Reason: Pain , Severe (7-10) Referrals: TYLER GREER JR, MD [Primary Care Provider] - 3-5 Days Forms: Work/School Release Form(ED) Time of Disposition: 15:21 Print Language: GEORGIAN
== END 2020-01-09 15:32 | disposition home or self-care (01) ==
LOC: ED 12:29
DX: B37.3 Candidiasis of vulva and vagina (principal); N39.0 Urinary tract infection, site not specified
CPT/HCPCS: 81001; 87086; 96372; 99283; J0696

== ENCOUNTER 2020-08-16 15:59 | Emergency (ER) | payer MEDICARE ==
[2020-08-16 18:02] VITALS: BP 106/67
--- NOTE | 2020-08-16 21:26 | Emergency Department Report ---
ED General Adult HPI - General Chief complaint: Back Pain/Injury Stated complaint: LOWER BACK PAIN Time Seen by Provider: 08/16/20 21:18 Source: patient Mode of arrival: Ambulatory Limitations: No Limitations - History of Present Illness -: year(s) Location: back (chronic back pain and ran out of medications. Due to have refill august [address] Valentine. Needs a refill of ultram, norco and neurontin to last until that time) Radiation: back Quality: aching, dull Improves with: none Worsens with: none Associated Symptoms: denies: confusion, chest pain, cough, diaphoresis, loss of appetite, malaise, nausea/vomiting, rash, seizure, shortness of breath, syncope, weakness Treatments Prior to Arrival: none - Related Data Home Medications Medication Instructions Recorded Confirmed Last Taken Lisinopril/Hydrochlorothiazide 1 tab PO QDAY 11/09/12 11/09/12 11/08/12 21:00 [Zestoretic 20-12.5 mg] Benzonatate [Tessalon Perle] 100 mg PO DAILY PRN 06/28/20 Unknown Gabapentin 300 mg PO DAILY 06/28/20 06/28/20 Unknown Previous Rx's Medication Instructions Recorded Last Taken Type Cyclobenzaprine [Flexeril] 10 mg PO BID PRN #10 tablet 08/04/15 Unknown Rx Ketorolac [Toradol] 10 mg PO Q6H PRN #10 tablet 08/16/20 Unknown Rx methOCARBAMOL [Robaxin TAB] 750 mg PO Q8H #14 tablet 08/16/20 Unknown Rx Allergies Allergy/AdvReac Type Severity Reaction Status Date / Time No Known Allergies Allergy Verified 07/04/20 12:11 ED Review of Systems ROS: Stated complaint: LOWER BACK PAIN Other details as noted in HPI Comment: All other systems reviewed and negative ED Past Medical Hx - Past Medical History Previous Medical History?: Yes Hx Hypertension: Yes Hx CVA: Yes Hx Heart Attack/AMI: No Hx Congestive Heart Failure: No Hx Diabetes: Yes (DIET CONTROLLED) Hx GERD: No Hx Liver Disease: No Hx Sickle Cell Disease: No Hx Arthritis: No Hx Headaches / Migraines: Yes (MIGRAINES) Hx Kidney Stones: No Hx Asthma: No Hx COPD: No Hx Tuberculosis: No Hx HIV: No - Surgical History Past Surgical History?: Yes Hx Pacemaker: No Hx Internal Defibrillator: No Additional Surgical History: hysterectomy - Social History Smoking Status: Current Every Day Smoker - Medications Home Medications: Home Medications Medication Instructions Recorded Confirmed Last Taken Type Lisinopril/Hydrochlorothiazide 1 tab PO QDAY 11/09/12 11/09/12 11/08/12 21:00 History [Zestoretic 20-12.5 mg] Cyclobenzaprine [Flexeril] 10 mg PO BID PRN #10 tablet 08/04/15 Unknown Rx Benzonatate [Tessalon Perle] 100 mg PO DAILY PRN 06/28/20 Unknown History Gabapentin 300 mg PO DAILY 06/28/20 06/28/20 Unknown History Ketorolac [Toradol] 10 mg PO Q6H PRN #10 tablet 08/16/20 Unknown Rx methOCARBAMOL [Robaxin TAB] 750 mg PO Q8H #14 tablet 08/16/20 Unknown Rx ED Physical Exam - General Limitations: No Limitations General appearance: alert, in no apparent distress - Head Head exam: Present: atraumatic, normocephalic - Eye Eye exam: Present: normal appearance, PERRL, EOMI Pupils: Present: normal accommodation - ENT ENT exam: Present: mucous membranes moist - Neck Neck exam: Present: normal inspection, full ROM - Respiratory Respiratory exam: Present: normal lung sounds bilaterally. Absent: respiratory distress - Cardiovascular Cardiovascular Exam: Present: regular rate, normal rhythm. Absent: systolic murmur, diastolic murmur, rubs, gallop - GI/Abdominal GI/Abdominal exam: Present: soft, normal bowel sounds. Absent: distended, tenderness - Extremities Exam Extremities exam: Present: normal inspection, full ROM, normal capillary refill - Back Exam Back exam: Present: normal inspection, tenderness (lumbar region). Absent: CVA tenderness (R), CVA tenderness (L) - Neurological Exam Neurological exam: Present: alert, oriented X3, CN II-XII intact, normal gait - Psychiatric Psychiatric exam: Present: normal affect, normal mood - Skin Skin exam: Present: warm, dry, intact, normal color. Absent: rash ED Course Vital Signs 08/16/20 18:01 Temperature 98.5 F Pulse Rate 88 Respiratory 18 Rate Blood Pressure 106/67 O2 Sat by Pulse 100 Oximetry ED Medical Decision Making - Medical Decision Making Pt presents the emergency department complaining of chronic back pain most consistent with lumbago back Pain Differential Diagnosis Includes Lumbar Go Versus Musculoskeletal Spasm, Strain Versus Sciatica. No Back Pain Red Flags on History or Physical. Presentation Not Consistent with Malignancy, Fracture, Cauda Equina, Abdominal Aortic Aneurysm, Viscus Perforation, Pulmonary Embolism, Renal Colic, Pyelonephritis. Patient reports no B symptoms, trauma trauma, incontinence, saddle anesthesia, distal weakness, urinary symptoms and is a febrile. Due to follow-up with her primary care provider Dr. Valentine on August 20 which is when her pain prescription was supposed to run out due to her VNA earlier she is requesting a refill on her medications. We will give the patient some analgesic control in the form of muscle relaxers and Toradol to help mitigate her symptoms Critical care attestation.: If time is entered above; I have spent that time in minutes in the direct care of this critically ill patient, excluding procedure time. ED Disposition Clinical Impression: Lumbago, Dental caries Disposition: TO HOME OR SELFCARE Is pt being admited?: No Does the pt Need Aspirin: No Condition: Stable Instructions: Acute Back Pain, Adult, Radicular Pain, Back Injury Prevention, [id number] Additional Instructions: You have been seen in the emergency department today for your chronic back pain/prescription refill. Due to the presentation of your condition and no new symptoms no worsening symptoms symptoms only continued symptoms recommended to follow-up with your primary care provider for management of your narcotic pain medication. Please utilize Tylenol and Motrin as needed for your other dis comfort you have also been provided with some analgesic prescriptions for the short-term today. Please call your primary care provider tomorrow to try to adjust your appointment to help with your relief. It is very important that you maintain utilization of your medication as prescribed and if you must deviate from your doctors of recommended treatment please alert them of your doing so You may return to emergency department should you have new or worsening symptoms, loss of control of bowel or bladder, saddle paresthesia or any concerning factors of a worsening condition Prescriptions: methOCARBAMOL [Robaxin TAB] 750 mg PO Q8H #14 tablet Ketorolac [Toradol] 10 mg PO Q6H PRN #10 tablet PRN Reason: Pain Referrals: FAIZA VALENTINE MD [Staff Physician] - 3-5 Days
== END 2020-08-16 21:50 | disposition home or self-care (01) ==
LOC: ED 15:59
DX: M54.5 Low back pain (principal); I10 Essential (primary) hypertension; I25.2 Old myocardial infarction; E11.9 Type 2 diabetes mellitus without complications; G43.909 Migraine, unspecified, not intractable, without status migrainosus; F17.200 Nicotine dependence, unspecified, uncomplicated; Z79.899 Other long term (current) drug therapy; Z86.73 Personal history of transient ischemic attack (TIA), and cerebral infarction without residual deficits; Z90.710 Acquired absence of both cervix and uterus
CPT/HCPCS: 99282